=== PATIENT | female | born 1990 | race Caucasian/White ===

== ENCOUNTER 2020-06-12 11:47 | Outpatient (REF) | payer OTHER, MEDICAID, SELFPAY ==
[2020-06-12 13:45] LABS: HCG Quantitative 11449 mIU/mL
== END 2020-06-12 11:48 | disposition home or self-care (01) ==
LOC: HO.LAB 11:47
PROVIDERS: Visit Provider Advanced Practice Midwife
DX: N92.6 Irregular menstruation, unspecified (principal)
CPT/HCPCS: 81025; 84702; 99212

== ENCOUNTER 2020-06-20 09:18 | Outpatient (REF) | payer OTHER, SELFPAY ==
--- NOTE | 2020-06-20 09:22 | US_ITS ---
EXAMINATION: OBSTETRICAL ULTRASOUND, FIRST TRIMESTER HISTORY: 29-year-old with secondary amenorrhea LMP: Unknown COMPARISON: None in this TECHNIQUE: Real time transabdominal imaging with color and M-mode Doppler. FINDINGS: A single, live IUP CRL of 4.1 mm c/w 6.1wks is noted. Heart Rate: 124 beats per minute. Both maternal ovaries are seen and appear normal. GESTATIONAL AGE: 1. GA from LMP: N/A wks 2. GA from AUA: 6.1 wks ESTIMATED DATE OF DELIVERY: 1. WU from LMP: N/A 2. WU from AUA: 02/12/2021 US/US OB <= 14 weeks fetus IMPRESSION: 1. A single live IUP 2. CRL corresponds to 6.1 weeks of gestation giving the WU of 02/12/2021 3. Normal heart rate of 124 bpm Thank you for allowing me to participate in her care.
== END 2020-06-20 09:19 | disposition home or self-care (01) ==
LOC: HO.US 09:18
PROVIDERS: Visit Provider Advanced Practice Midwife
DX: O26.841 Uterine size-date discrepancy, first trimester (principal); Z3A.14 14 weeks gestation of pregnancy
CPT/HCPCS: 76801

== ENCOUNTER → 2020-07-02 14:15 | Outpatient (BNVA) | payer OTHER, SELFPAY | PROVIDERS: PCP Nurse Practitioner Family; Visit Provider Advanced Practice Midwife | DX: Z76.89 Persons encountering health services in other specified circumstances (principal) ==

== ENCOUNTER → 2020-07-17 10:17 | Outpatient (BNVA) | payer OTHER, SELFPAY | PROVIDERS: PCP Nurse Practitioner Family; Visit Provider Advanced Practice Midwife | DX: Z34.90 Encounter for supervision of normal pregnancy, unspecified, unspecified trimester (principal) | CPT/HCPCS: 99212 ==

== ENCOUNTER 2020-07-29 09:05 | Outpatient (REF) | payer MEDICAID, SELFPAY ==
[2020-07-30 09:47] LABS: BV Int Neg Control Negative (Negative); BV Int Pos Control Positive (Positive)
[2020-07-30 19:02] LABS: C. trachomatis RNA TMA NOT DETECTED (NOT DETECTED); N. gonorrhoeae RNA TMA NOT DETECTED (NOT DETECTED)
== END 2020-07-29 09:06 | disposition home or self-care (01) ==
LOC: HO.LAB 09:05
PROVIDERS: PCP Nurse Practitioner Family; Visit Provider Advanced Practice Midwife
DX: Z01.419 Encounter for gynecological examination (general) (routine) without abnormal findings (principal); O26.91 Pregnancy related conditions, unspecified, first trimester; Z3A.01 Less than 8 weeks gestation of pregnancy
CPT/HCPCS: 36415; 81003; 87480; 87491; 87510; 87591; 87660; 88142; 99212

== ENCOUNTER 2020-08-01 11:03 | Outpatient (REF) | payer MEDICAID, SELFPAY ==
--- NOTE | 2020-08-01 11:09 | US_ITS ---
EXAMINATION: OBSTETRICAL ULTRASOUND, FIRST TRIMESTER HISTORY: A 30-year-old at 12.1 weeks of gestation BMI 36.6 NT screening COMPARISON: 06/20/2020 TECHNIQUE: Real time transabdominal imaging with color and M-mode Doppler. FINDINGS: A single, live IUP CRL of 72.0 mm c/w 13.3wks is noted. Heart Rate: 156 beats per minute. Normal yolk sac seen. NT was 1.73.mm. NB Present The embryo appears sonographically wnl for this GA. Unable to visualize GESTATIONAL AGE: 1. Established GA: 12.1 wks 2. GA from AUA: 13.3 wks ESTIMATED DATE OF DELIVERY: 1. Established WU: 02/12/2021 2. WU from [facility]: 02/03/2021 US/US OB 1T nuc measure IMPRESSION: 1. A single live IUP 2. Size greater than dates, based on today's examination, would recommend adjusting her WU to 02/03/2021. Her original WU was based on 6 week ultrasound where the CRL was some difficult to obtain. 3. NT of 1.73 mm MFM Consultation: I reviewed the ultrasound findings along with significance of NT measurement. The NT of less than 3mm is generally reassuring. However, the sensitivity for T21 detection is only 60%. I reviewed the availability of serum aneuploidy screening which includes cell-free DNA and placental protein based tests. I discussed the sensitivity, false-positive rate, and other limitations associated with each test. I also reviewed the availability of invasive diagnostic tests that are associated small but definite risk of miscarriage. We also reviewed the differences between screening tests and diagnostic tests. After our discussion, she opted for the First trimester screening that is based on cell-free DNA or non-invasive testing (NIPT). There is increased risk of congenital abnormalities and morbidity in women with BMI >35. The result will be faxed to your office in approximately 7 days. A follow up at 18 weeks for survey has been scheduled. Thank you very much for this referral. Majority of this visit was spent reviewing her care and counselling her in face to face time: Time spent 30 min. (5,18,7)
== END 2020-08-01 11:04 | disposition home or self-care (01) ==
LOC: HO.US 11:03
PROVIDERS: Visit Provider Advanced Practice Midwife
DX: Z36.82 Encounter for antenatal screening for nuchal translucency (principal)
CPT/HCPCS: 76813

== ENCOUNTER → 2020-08-26 08:31 | Outpatient (BNVA) | payer MEDICAID, SELFPAY | PROVIDERS: Visit Provider Advanced Practice Midwife | DX: Z34.81 Encounter for supervision of other normal pregnancy, first trimester (principal) | CPT/HCPCS: 81003; 99212 ==

== ENCOUNTER 2020-09-05 08:25 | Outpatient (REF) | payer MEDICAID, SELFPAY ==
--- NOTE | ~2020-09-05 | US_ITS ---
EXAMINATION: US OBSTETRICAL CLINICAL INFORMATION: 30-year-old at 18.3 weeks of gestation BMI 36.6 Screening for anomaly COMPARISON: 08/01/2020 TECHNIQUE: Real-time transabdominal ultrasound was performed using C1-5 megahertz transducer. FINDINGS: A single, active, fetus is seen in breech presentation. The placenta is posterior without previa, and the amniotic fluid volume is wnl. MEASUREMENTS: 1. Biparietal Diameter: 4.2 cm; 18.6 wks 2. Occipital Frontal Diameter: 5.3 cm 3. Head Circumference: 15.4 cm; 18.3 wks 4. Abdominal Circumference: 12.9 cm; 18.4 wks 5. Femur Length: 2.8 cm; 18.5 wks 6. Humerus Length: 2.7 cm; 18.4 wks 7. Tibia Length: 2.4 cm; 18.4 wks 8. Ulna Length: 2.5 cm; 18.6 wks 9. Lateral ventricle: 0.58 cm 10. Cerebellum: 1.8 cm; 18.5 wks 11. Cisterna Magna: 0.4 cm 12. Nuchal Fold: 2.8 mm 13. Heart Rate: 152 beats per minute Rt ovary: normal Lt ovary: normal Cervical length 4.7 cm on T/A. GESTATIONAL AGE: 1. Established GA: 18.3 wks 2. GA from [facility]: 18.5 wks ESTIMATED DATE OF DELIVERY: 1. Established WU: 02/03/2021 2. WU from [facility]: 02/01/2021 ANATOMY: The visualized anatomy includes but not limited to: 1. Cranium: Normal 2. Intracranial anatomy: cavum septum pellucidi, lateral ventricles, choroid plexus, cerebellum, posterior fossa, third and fourth ventricles. 3. face: orbits, lip/palate, profile, nasal bone 4. Heart: four-chamber view of the heart, ventricular septum, foramen ovale, pulmonary vein, left and right outflow tracts, three-vessel view, 3 vessel trachea view, aortic and ductal arches, situs.. 5. Diaphragm: Normal 6. Abdominal wall: Normal 7. Cord Insertion: Normal 8. Spine: Cervical, thoracic, lumbar, sacral. 9. Stomach: Normal size and shape 10. Right Kidney: Normal 11. Left Kidney: Normal 12. 3 vessel cord: Normal 13. Upper extremity: Open hands, fifth digit. 14. Lower extremity: Tibia, fibula, bilateral feet. 15. Bladder: Normal 16. Genitalia: Male, patient aware US/US OB /maternal detail IMPRESSION: 1. Single, living, intrauterine with appropriate biometry. 2. Normal survey DISCUSSION: I reviewed today's ultrasound findings. We discussed the limitations of ultrasound in diagnosing aneuploidy and other congenital abnormalities. I reviewed the differences between screening test and diagnostic test. Amniocentesis was discussed and declined. She was informed that the baseline incidence of congenital abnormalities is approximately 3-5%. Not all these conditions are diagnosable in utero. RECOMMENDATIONS: 1. Follow-up when necessary Thank you for allowing me to participate in her care. This note was generated with a voice recognition program. Please excuse any errors which may have been overlooked during my review of this note. Sometimes these errors may affect the content or meaning of a given sentence.
[2020-09-05 09:56] LABS: MANUAL DIFF FLAG NO
[2020-09-05 10:01] LABS: Basophils Percent Auto 0.4 % (0-2); Eosinophils Absolute Auto 0.1 X10*3/uL (0.0-0.4); Eosinophils Percent Auto 0.9 % (0-4); Hematocrit 36.3 % (37-47); Hemoglobin 12.6 g/dl (12.0-16.0); Imm Gran Abs Auto 0.04 X10*3/uL (0.00-0.03); Imm Gran Pct Auto 0.6 % (0.0-0.4); Lymphocytes Percent Auto 15.5 % (20-40); Mean Corpuscular HGB Conc 34.7 g/dl (31.0-35.0); Mean Corpuscular Hemoglobin 28.6 pg (27.0-33.0); Mean Corpuscular Volume 82.3 fL (80-98); Mean Platelet Volume 10.9 fL (9.4-12.3); Monocytes Absolute Auto 0.5 X10*3/uL (0.1-1.2); Neutrophils Absolute Auto 5.1 X10*3/uL (2.0-8.3); Neutrophils Percent Auto 75.6 % (45-73); Platelet Count 273 X10*3/uL (160-400); Red Blood Count 4.41 X10*6/uL (4.20-5.50); Red Cell Distribution Width 12.5 % (11.0-16.0); White Blood Count 6.7 X10*3/uL (4.8-10.8)
[2020-09-05 10:28] LABS: Glucose 1 Hour PP 50gm Dose 93 mg/dL (60-140)
[2020-09-05 10:51] LABS: Syphilis Screen Nonreactive (Nonreactive)
[2020-09-05 10:58] LABS: HBsAGNum1 0.14 S/CO (0.00-0.99); Hepatitis B Surface Antigen Negative (Negative); ~HepC Num1 0.09 S/CO (0.00-0.79); ~Hepatitis C Antibody Nonreactive (Nonreactive)
[2020-09-05 11:03] LABS: HIV AB/AG Nonreactive (Nonreactive); HIV Num 1 0.05 S/CO (0.00-0.99)
[2020-09-05 11:38] LABS: Amphetamine Screen Urine Not Detected (Not Detect); Barbiturates, Urine Not Detected (Not Detect); Benzodiazepines Screen Urine Not Detected (Not Detect); Cannabinoid Screen Urine Not Detected (Not Detect); Cocaine Screen Urine Not Detected (Not Detect); Opiate Screen Urine Not Detected (Not Detect); Phencyclidine Screen Urine Not Detected (Not Detect)
[2020-09-06 08:36] LABS: Rubella IgG Antibody 1.93 Index
[2020-09-06 09:47] LABS: C. trachomatis RNA TMA NOT DETECTED (NOT DETECTED); N. gonorrhoeae RNA TMA NOT DETECTED (NOT DETECTED)
== END 2020-09-05 08:26 | disposition home or self-care (01) ==
LOC: HO.LAB 08:25
PROVIDERS: Visit Provider Advanced Practice Midwife
DX: Z34.90 Encounter for supervision of normal pregnancy, unspecified, unspecified trimester (principal); Z36.3 Encounter for antenatal screening for malformations
CPT/HCPCS: 76811; 80307; 85025; 86762; 86780; 86787; 86803; 86850; 86900; 86901; 87086; 87340; 87389; 87491; 87591

== ENCOUNTER → 2020-09-23 08:27 | Outpatient (BNVA) | payer MEDICAID, SELFPAY | PROVIDERS: Visit Provider Advanced Practice Midwife | DX: Z34.92 Encounter for supervision of normal pregnancy, unspecified, second trimester (principal); Z3A.21 21 weeks gestation of pregnancy; R51.9 Headache, unspecified | CPT/HCPCS: 81003 ==

== ENCOUNTER 2020-10-22 08:18 | Outpatient (REF) | payer MEDICAID, SELFPAY | END 2020-10-22 08:19 | disposition home or self-care (01) | LOC: HO.LAB 08:18 | PROVIDERS: Visit Provider Obstetrics & Gynecology | DX: Z34.92 Encounter for supervision of normal pregnancy, unspecified, second trimester (principal); Z3A.25 25 weeks gestation of pregnancy | CPT/HCPCS: 99212 ==

== ENCOUNTER 2020-11-01 10:29 | Outpatient (REF) | payer MEDICAID, SELFPAY ==
[2020-11-01 11:55] LABS: MANUAL DIFF FLAG NO
[2020-11-01 11:58] LABS: Basophils Percent Auto 0.4 % (0-2); Eosinophils Absolute Auto 0.1 X10*3/uL (0.0-0.4); Eosinophils Percent Auto 0.8 % (0-4); Hematocrit 34.5 % (37-47); Hemoglobin 11.9 g/dl (12.0-16.0); Imm Gran Abs Auto 0.06 X10*3/uL (0.00-0.03); Imm Gran Pct Auto 0.8 % (0.0-0.4); Lymphocytes Absolute Auto 1.2 X10*3/uL (1.2-4.9); Lymphocytes Percent Auto 16.4 % (20-40); Mean Corpuscular HGB Conc 34.5 g/dl (31.0-35.0); Mean Corpuscular Hemoglobin 29.2 pg (27.0-33.0); Mean Corpuscular Volume 84.6 fL (80-98); Mean Platelet Volume 10.3 fL (9.4-12.3); Monocytes Absolute Auto 0.5 X10*3/uL (0.1-1.2); Monocytes Percent Auto 6.6 % (2-11); Neutrophils Absolute Auto 5.6 X10*3/uL (2.0-8.3); Platelet Count 269 X10*3/uL (160-400); Red Blood Count 4.08 X10*6/uL (4.20-5.50); White Blood Count 7.4 X10*3/uL (4.8-10.8)
[2020-11-01 12:14] LABS: Glucose 1 Hour PP 50gm Dose 133 mg/dL (60-140)
[2020-11-03 03:43] LABS: Syphilis Screen Nonreactive (Nonreactive)
== END 2020-11-01 10:30 | disposition home or self-care (01) ==
LOC: HO.LAB 10:29
PROVIDERS: Visit Provider Obstetrics & Gynecology
DX: Z34.90 Encounter for supervision of normal pregnancy, unspecified, unspecified trimester (principal)
CPT/HCPCS: 36415; 85025; 86780; 86850; 86900; 86901

== ENCOUNTER → 2020-11-03 13:37 | Outpatient (BNVA) | payer MEDICAID, SELFPAY | PROVIDERS: Visit Provider Obstetrics & Gynecology ==

== ENCOUNTER 2021-08-11 09:31 | Outpatient (REF) | payer MEDICAID, SELFPAY ==
--- NOTE | ~2021-08-11 | US_ITS ---
EXAMINATION: US ABDOMEN LIMITED CLINICAL INFORMATION: Mass palpated at mid axillary line. Pain, lump palpated left flank area. COMPARISON: None TECHNIQUE: Real-time imaging of the right upper quadrant abdominal viscera. FINDINGS: Imaging through the palpated mass mid axillary area and left flank area. There is no visible mass or mass effect. No fluid collection. Imaging of the contralateral right flank was performed as well with no abnormality seen. US/US abdomen limited IMPRESSION: Unremarkable limited ultrasound of the left axillary and mid flank region.
== END 2021-08-11 09:32 | disposition home or self-care (01) ==
LOC: HO.HMGCX 09:31
PROVIDERS: Visit Provider Nurse Practitioner
DX: M79.89 Other specified soft tissue disorders (principal)
CPT/HCPCS: 76705

== ENCOUNTER 2021-09-22 09:03 | Outpatient (REF) | payer MEDICAID, SELFPAY ==
--- NOTE | ~2021-09-22 | XR_ITS ---
EXAMINATION: XR KNEE, RIGHT CLINICAL INFORMATION: Pain COMPARISON: None TECHNIQUE: Four views of the right knee. FINDINGS: Bones and soft tissues are normal. No fracture or joint effusion. Alignment is anatomic. Joint spaces are well maintained. No abnormal soft tissue calcification. XR/XR knee RT 4V IMPRESSION: Normal right knee.
--- NOTE | ~2021-09-22 | US_ITS ---
EXAMINATION: US RETROPERITONEAL LIMITED (RENAL ONLY) CLINICAL INFORMATION: Abdominal pain. COMPARISON: Ultrasound abdomen limited 08/11/2021. TECHNIQUE: Real-time imaging of the kidneys. FINDINGS: RIGHT KIDNEY: 10.2 x 4.2 x 6.0 cm (SAG x AP x TRV). The kidney is normal in size, contour, and echogenicity. Renal cortical thickness is normal. There is a 9 x 3 mm echogenic density with twinkle artifact some acoustic shadowing questionable for a stone. No focal parenchymal lesions. No hydronephrosis. LEFT KIDNEY: 13.3 x 4.0 x 6.6 cm (SAG x AP x TRV). The kidney is normal in size, contour, and echogenicity. Renal cortical thickness is normal. No calculi or focal parenchymal lesions. No hydronephrosis. US/US renal BI IMPRESSION: Question right renal stone.
--- NOTE | ~2021-09-22 | XR_ITS ---
EXAMINATION: XR SHOULDER, RIGHT CLINICAL INFORMATION: Pain COMPARISON: None TECHNIQUE: AP external rotation, Grashey, scapular Y, and axillary views of the right shoulder. FINDINGS: The bones and soft tissues are normal. No fracture. Glenohumeral and acromioclavicular alignment is anatomic with normal joint space. No abnormal soft tissue calcifications. XR/XR shoulder RT min 2V IMPRESSION: Normal right shoulder.
== END 2021-09-22 09:04 | disposition home or self-care (01) ==
LOC: HO.US 09:03
PROVIDERS: PCP Nurse Practitioner Family; Visit Provider Nurse Practitioner Family
DX: M25.561 Pain in right knee (principal); M25.511 Pain in right shoulder
CPT/HCPCS: 73030; 73564; 76775

== ENCOUNTER → 2021-11-17 11:35 | Outpatient (BNVA) | payer MEDICAID, SELFPAY | PROVIDERS: PCP Nurse Practitioner Family | DX: N20.0 Calculus of kidney (principal) | CPT/HCPCS: 99202 ==

== ENCOUNTER 2021-11-25 10:29 | Outpatient (REF) | payer MEDICAID, SELFPAY ==
--- NOTE | ~2021-11-25 | XR_ITS ---
EXAMINATION: XR CHEST CLINICAL INFORMATION: COMPARISON: None TECHNIQUE: 2 views of the chest were obtained. FINDINGS: No significant abnormality is noted involving the heart, lungs, mediastinum, bony thorax or soft tissues. XR/XR chest 2V IMPRESSION: Unremarkable examination.
[2021-11-25 11:51] LABS: MANUAL DIFF FLAG NO
[2021-11-25 12:14] LABS: Basophils Absolute Auto 0.1 X10*3/uL (0.0-0.2); Basophils Percent Auto 0.8 % (0-2); Eosinophils Absolute Auto 0.1 X10*3/uL (0.0-0.4); Eosinophils Percent Auto 1.7 % (0-4); Hematocrit 39.6 % (37.0-47.0); Hemoglobin 12.9 g/dl (12.0-16.0); Imm Gran Abs Auto 0.01 X10*3/uL (0.00-0.03); Imm Gran Pct Auto 0.2 % (0.0-0.4); Lymphocytes Absolute Auto 1.9 X10*3/uL (1.2-4.9); Lymphocytes Percent Auto 32.1 % (20-40); Mean Corpuscular HGB Conc 32.6 g/dl (31.0-35.0); Mean Corpuscular Hemoglobin 26.7 pg (27.0-33.0); Mean Platelet Volume 10.9 fL (9.4-12.3); Monocytes Absolute Auto 0.5 X10*3/uL (0.1-1.2); Monocytes Percent Auto 7.5 % (2-11); Neutrophils Absolute Auto 3.5 x10*3/uL (2.0-8.3); Neutrophils Percent Auto 57.7 % (45-73); Platelet Count 382 X10*3/uL (160-400); Red Blood Count 4.83 X10*6/uL (4.20-5.50); Red Cell Distribution Width 12.5 % (11.0-16.0)
[2021-11-25 13:01] LABS: Erythrocyte Sedimentation Rate 6 MM/HR (0-20)
[2021-11-27 12:52] LABS: Antibody to SS-A Antigen <1.0 NEG AI (<1.0 NEG); Antibody to SS-B Antigen <1.0 NEG AI (<1.0 NEG)
[2021-11-27 13:12] LABS: Lyme Abs Screen <0.90 index
[2021-12-01 23:52] LABS: Anti Nuclear Antibody Screen NEGATIVE (NEGATIVE)
== END 2021-11-25 10:30 | disposition home or self-care (01) ==
LOC: HO.LAB 10:29
PROVIDERS: PCP Nurse Practitioner Family; Visit Provider Hospitalist
DX: R07.81 Pleurodynia (principal); J45.909 Unspecified asthma, uncomplicated; G47.33 Obstructive sleep apnea (adult) (pediatric)
CPT/HCPCS: 36415; 71046; 82785; 85025; 85652; 86003; 86038; 86039; 86235; 86617; 86618; 99202

== ENCOUNTER → 2021-12-15 08:39 | Outpatient (REF) | payer MEDICAID, SELFPAY | LOC: HO.SL 08:39 | PROVIDERS: PCP Nurse Practitioner Family; Visit Provider Hospitalist | DX: G47.33 Obstructive sleep apnea (adult) (pediatric) (principal) | CPT/HCPCS: 95806 ==

== ENCOUNTER → 2022-01-29 08:45 | Outpatient (BNVA) | payer MEDICAID, SELFPAY | PROVIDERS: PCP Nurse Practitioner Family; Visit Provider Hospitalist | DX: J45.909 Unspecified asthma, uncomplicated (principal); G47.33 Obstructive sleep apnea (adult) (pediatric); J40 Bronchitis, not specified as acute or chronic | CPT/HCPCS: 99212 ==

== ENCOUNTER 2022-10-06 09:26 | Outpatient (REF) | payer MEDICAID, SELFPAY ==
--- NOTE | ~2022-10-06 | US_ITS ---
EXAMINATION: US RETROPERITONEAL LIMITED (RENAL ONLY) CLINICAL INFORMATION: Calculus of kidney. COMPARISON: Renal ultrasound 09/22/2021. Ultrasound abdomen limited 08/11/2021. TECHNIQUE: Real-time imaging of the kidneys. FINDINGS: RIGHT KIDNEY: 10.0 x 4.5 x 5.6 cm (SAG x AP x TRV). The kidney is normal in size, contour, and echogenicity. Renal cortical thickness is normal. No focal parenchymal lesions or hydronephrosis. There is an echogenic stone in midpole measuring 0.6 x 0.8 x 0.6 cm. LEFT KIDNEY: 11.8 x 3.6 x 5.0 cm (SAG x AP x TRV). The kidney is normal in size, contour, and echogenicity. Renal cortical thickness is normal. No calculi or focal parenchymal lesions. No hydronephrosis. US/US renal BI IMPRESSION: Nonobstructive echogenic renal calculi midpole right kidney.
== END 2022-10-06 09:27 | disposition home or self-care (01) ==
LOC: HO.US 09:26
PROVIDERS: PCP Registered Nurse
DX: N20.0 Calculus of kidney (principal); Z87.442 Personal history of urinary calculi
CPT/HCPCS: 76775

== ENCOUNTER 2022-10-14 08:54 | Outpatient (REF) | payer MEDICAID, SELFPAY ==
--- NOTE | 2022-10-14 08:58 | EMG_ITS ---
Bilateral median and ulnar motor and sensory studies were performed. Bilateral radial sensory studies were performed and paraspinal muscles were tested with a needle. IMPRESSION: 1. Mild bilateral ulnar neuropathy across cubital tunnel. 2. Mild left median neuropathy across carpal tunnel. MD YULIYA Espino/JESSE / [id number]
== END 2022-10-14 08:55 | disposition home or self-care (01) ==
LOC: HO.NEURO 08:54
PROVIDERS: PCP Registered Nurse; Visit Provider Registered Nurse
DX: R20.0 Anesthesia of skin (principal); R20.2 Paresthesia of skin
CPT/HCPCS: 95886; 95911

== ENCOUNTER 2022-10-15 16:31 | Outpatient (REF) | payer MEDICAID, SELFPAY ==
--- NOTE | ~2022-10-15 | XR_ITS ---
Examination: Cervical, dorsal and lumbosacral spine. CLINICAL INDICATION: Numbness and tingling in both legs COMPARISON: None. TECHNIQUE: 5 views cervical spine. 3 views dorsal spine. And 3 views lumbosacral spine. FINDINGS: Cervical spine: There is reversal of cervical lordosis. The vertebral heights, alignment and disc heights are normal. On oblique views the neural foramina patent bilaterally. No visible acute fracture, dislocation or subluxation seen. No aggressive lytic or sclerotic process seen. Dorsal spine: There is normal thoracic kyphosis. The vertebral heights, alignment and disc heights are normal. No visible acute fracture, dislocation or subluxation seen. No lytic or sclerotic process. The paravertebral soft tissues are normal Lumbar spine: There is normal lumbar lordosis. The vertebral heights, alignment and disc heights are normal. SI joints are symmetric and normal. No visible acute fracture, dislocation or lytic process seen. The paravertebral soft tissues are normal. XR/XR lumbar spine 2-3V IMPRESSION: 1. Reversal of cervical lordosis likely spasm. No visible acute fracture or dislocation seen. 2. Unremarkable dorsal spine exam. 3. Unremarkable lumbar spine exam.
--- NOTE | ~2022-10-15 | XR_ITS ---
Examination: Cervical, dorsal and lumbosacral spine. CLINICAL INDICATION: Numbness and tingling in both legs COMPARISON: None. TECHNIQUE: 5 views cervical spine. 3 views dorsal spine. And 3 views lumbosacral spine. FINDINGS: Cervical spine: There is reversal of cervical lordosis. The vertebral heights, alignment and disc heights are normal. On oblique views the neural foramina patent bilaterally. No visible acute fracture, dislocation or subluxation seen. No aggressive lytic or sclerotic process seen. Dorsal spine: There is normal thoracic kyphosis. The vertebral heights, alignment and disc heights are normal. No visible acute fracture, dislocation or subluxation seen. No lytic or sclerotic process. The paravertebral soft tissues are normal Lumbar spine: There is normal lumbar lordosis. The vertebral heights, alignment and disc heights are normal. SI joints are symmetric and normal. No visible acute fracture, dislocation or lytic process seen. The paravertebral soft tissues are normal. XR/XR thoracic spine 2V IMPRESSION: 1. Reversal of cervical lordosis likely spasm. No visible acute fracture or dislocation seen. 2. Unremarkable dorsal spine exam. 3. Unremarkable lumbar spine exam.
--- NOTE | ~2022-10-15 | XR_ITS ---
Examination: Cervical, dorsal and lumbosacral spine. CLINICAL INDICATION: Numbness and tingling in both legs COMPARISON: None. TECHNIQUE: 5 views cervical spine. 3 views dorsal spine. And 3 views lumbosacral spine. FINDINGS: Cervical spine: There is reversal of cervical lordosis. The vertebral heights, alignment and disc heights are normal. On oblique views the neural foramina patent bilaterally. No visible acute fracture, dislocation or subluxation seen. No aggressive lytic or sclerotic process seen. Dorsal spine: There is normal thoracic kyphosis. The vertebral heights, alignment and disc heights are normal. No visible acute fracture, dislocation or subluxation seen. No lytic or sclerotic process. The paravertebral soft tissues are normal Lumbar spine: There is normal lumbar lordosis. The vertebral heights, alignment and disc heights are normal. SI joints are symmetric and normal. No visible acute fracture, dislocation or lytic process seen. The paravertebral soft tissues are normal. XR/XR cervical spine 5V IMPRESSION: 1. Reversal of cervical lordosis likely spasm. No visible acute fracture or dislocation seen. 2. Unremarkable dorsal spine exam. 3. Unremarkable lumbar spine exam.
== END 2022-10-15 16:32 | disposition home or self-care (01) ==
LOC: HO.XRAY 16:31
PROVIDERS: Absent Provider Registered Nurse; PCP Registered Nurse; Visit Provider Registered Nurse
DX: R20.2 Paresthesia of skin (principal); R20.0 Anesthesia of skin; M79.18 Myalgia, other site
CPT/HCPCS: 72050; 72070; 72100

== ENCOUNTER → 2022-11-19 09:23 | Outpatient (BNVA) | payer MEDICAID, SELFPAY | PROVIDERS: PCP Registered Nurse; Visit Provider Nurse Practitioner Family | DX: N20.0 Calculus of kidney (principal) | CPT/HCPCS: 99212 ==

== ENCOUNTER 2023-04-12 17:37 | Outpatient (REF) | payer MEDICAID, SELFPAY | END 2023-04-12 17:38 | disposition home or self-care (01) | LOC: HO.HHCLNP 17:37 | PROVIDERS: Visit Provider Internal Medicine | DX: Z11.52 Encounter for screening for COVID-19 (principal); J06.9 Acute upper respiratory infection, unspecified; Z20.822 Contact with and (suspected) exposure to COVID-19 | CPT/HCPCS: 0241U ==

== ENCOUNTER 2023-05-12 14:13 | Outpatient (AMB) | payer MEDICAID, SELFPAY ==
[2023-05-12 14:26] VITALS: PULSE 75; O2SAT 99; BMI 35.0
--- NOTE | 2023-05-12 14:26 | MHC.OFFVIS ---
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 She has been describing worsening back discomfort. Appears to be pleuritic in nature. Bilateral. It is also reproducible. She has been describing also dryness of her mucous membranes that is being uncomfortable. She also describes sensations of paresthesias of bilateral lower extremities. [id number] severity. It is intermittent. The patient also has been complaining of significant daytime drowsiness. She does have significant snoring per her . The patient also has significant daytime drowsiness with an [place] score of 12/24. At this point with multiple constitutional symptoms is hard to know if she has multiple issues or if she has 1 universal diagnosis. Will have the patient undergo a chest x-ray in addition to blood work. based on the fact that her respiratory status appears to be fairly well controlled with the Flovent and short-acting beta agonist will continue that for now. The patient will need a home sleep study. 01/29/2022 the patient is here for a pulmonary follow-up visit. She feels like she is getting worse. She has developed a worsening cough productive in nature. Moderate severity. The Flovent is only partially helping. She has been using her daughter's rescue inhaler because she does not have 1 available. She complains of the coughing worse at nighttime. She also has chest tightness. We did look at her blood work including a CBC with normal eosinophils and allergy panel which was all negative with a normal IgE level. Patient also had a sleep study that was normal. Imaging studies also without any acute disease. At this point will maximize her respiratory therapy by placing her on Symbicort with spacer. The patient also will be treated for tracheobronchitis. 05/12/2023 the patient is here for pulmonary follow-up visit. Last month she had a very hard time with her asthma. She has significant chest tightness and wheezing. She went to an urgent care but she was not giving any medication. The patient has been on Symbicort although she is running out. She does have a nebulizer. At this point will go ahead and provide her with a nebulizer. Currently doing better so therefore will continue with Symbicort. The patient also has been struggling with allergies therefore will go ahead and start her on Singulair. No recent imaging studies to review. Will follow-up in 6-8 months. 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 Current occupational exposures/hazards: No Gender identity: Female Review of Systems Const Reports difficulty sleeping, Reports headache(s) and Reports snoring Eyes Denies change in vision and Reports dry eyes ENT Reports dry mouth and Reports headache(s) Card Denies palpitations Resp Reports cough, Reports snoring and Reports wheezing GI Reports no additional complaints Musc Reports back pain, Reports myalgias and Reports arthralgias Skin/Breast Denies rash Neuro Reports headache(s), Reports radicular pain and Reports paresthesias Endo Denies palpitations Aller/Immun Reports wheezing Physical Exam Vital Signs: Last Vital Signs Pulse 75 05/12/23 14:26 Pulse Ox 99 05/12/23 14:26 Oxygen Delivery Method Room Air 05/12/23 14:26 BMI result Body Mass Index 35.0 Const General: alert Neck Neck: Yes normal visual inspection, Yes full ROM and Yes no lymphadenopathy Chest Chest palpation & inspection: normal inspection of the chest Resp Auscultation: clear to auscultation bilaterally, no rhonchi and no wheezes Cardio Rate: regular rate Rhythm: regular rhythm Heart sounds: S1 normal heart sound present and S2 normal heart sound present GI Palpation (GI): Soft to palpation and nontender Auscultation: normal bowel sounds Skin General skin exam: rashes and/or lesions noted Assessment & Plan Assessment & Plan (1) Asthma: Code(s): J45.909 - Unspecified asthma, uncomplicated Qualifiers: Asthma complication type: uncomplicated Asthma persistence: persistent Asthma severity: moderate Qualified Code(s): J45.40 - Moderate persistent asthma, uncomplicated (2) ANN (obstructive sleep apnea): Comment: no ANN on home PSG. Consider in lab PSG if continues symptomatic Code(s): G47.33 - Obstructive sleep apnea (adult) (pediatric) Plan continue Symbicort with spacer Tessalon pearls as needed PATRICIA as needed start singulair F/U 6-8 months Medications: New albuterol sulfate 2.5 mg (3 mL) inhalation Q6H 30 days PRN 180 mL 11RF shortness of breath or wheezing montelukast (Singulair) 10 mg PO BEDTIME 30 days 30 tabs 11RF J45.909 - Unspecified asthma, uncomplicated prednisone PO daily; Take 2 tabs daily x 5 days, then 1 tablet daily x 5 days 15 tabs 0RF 10 days Refilled budesonide-formoterol 160-4.5 mcg/actuation (Symbicort) 2 puffs inhalation BID 30 days 10.2 grams 11RF J44.9 - Chronic obstructive pulmonary disease, unspecified albuterol sulfate 90 mcg/actuation 2 inhalations inhalation Q6H 30 days PRN 18 grams 12RF shortness of breath or wheezing J44.9 - Chronic obstructive pulmonary disease, unspecified Coding Level of Care Code Est Pt Level 4 (36300) Diagnoses Moderate persistent asthma without complication J45.40 Asthma complication type: uncomplicated Asthma persistence: persistent Asthma severity: moderate ANN (obstructive sleep apnea) G47.33 Time Spent (min) 16
== END 2023-05-12 14:46 | disposition home or self-care (01) ==
PROVIDERS: PCP Registered Nurse; Visit Provider Hospitalist
DX: J45.40 Moderate persistent asthma, uncomplicated (principal); G47.33 Obstructive sleep apnea (adult) (pediatric)
CPT/HCPCS: 99214

== ENCOUNTER → 2023-05-12 14:13 | Outpatient (BNVA) | payer MEDICAID, SELFPAY | PROVIDERS: PCP Registered Nurse; Visit Provider Hospitalist | DX: J45.40 Moderate persistent asthma, uncomplicated (principal); G47.33 Obstructive sleep apnea (adult) (pediatric) | CPT/HCPCS: 99212 ==

== ENCOUNTER 2023-08-12 09:00 | Outpatient (RCR) | payer MEDICAID, SELFPAY | END 2023-09-20 15:15 | disposition home or self-care (01) | LOC: HO.PT 09:00 | PROVIDERS: PCP Registered Nurse; Visit Provider Registered Nurse | DX: M76.31 Iliotibial band syndrome, right leg (principal); M76.32 Iliotibial band syndrome, left leg | CPT/HCPCS: 97162; 97530 ==

== ENCOUNTER 2023-11-23 14:57 | Outpatient (REF) | payer MEDICAID, SELFPAY ==
[2023-11-23 18:53] LABS: Alanine Aminotransferase 21 U/L (0-31); Albumin Level 4.3 g/dL (3.5-5.0); Alkaline Phosphatase 79 U/L (39-117); Anion Gap 15 (12-20); Aspartate Amino Transferase 13 U/L (5-31); Bilirubin Total 0.7 mg/dL (0.0-1.0); Blood Urea Nitrogen 12 mg/dL (9-16); Carbon Dioxide 21 mmol/L (22-29); Chloride 107 mmol/L (96-108); Estimated Glomerular Filt Rate > 60; Glucose Random 80 mg/dL (60-115); Sodium 139 mmol/L (135-145); Total Protein 7.7 g/dL (6.5-8.0)
[2023-11-23 19:08] LABS: Rheumatoid Factor < 13.0 IU/mL (<15.0)
[2023-11-23 19:12] LABS: Erythrocyte Sedimentation Rate 7 MM/HR (0-20)
[2023-11-28 14:38] LABS: Anti Nuclear Antibody Screen NEGATIVE (NEGATIVE)
== END 2023-11-23 14:58 | disposition home or self-care (01) ==
LOC: HO.HHCL 14:57
PROVIDERS: Visit Provider Registered Nurse
DX: M25.50 Pain in unspecified joint (principal)
CPT/HCPCS: 36415; 80053; 85652; 86038; 86140; 86431

== ENCOUNTER 2023-12-16 09:28 | Outpatient (AMB) | payer MEDICAID, SELFPAY ==
[2023-12-16 09:36] VITALS: PULSE 81; O2SAT 97; BMI 36.5
--- NOTE | 2023-12-16 09:36 | MHC.OFFVIS ---
Vital Signs 12/16/23 09:36 Height 5 ft 8 in Weight 240 lb BMI 36.5 Pulse 81 Pulse Source Pulse Oximeter Pulse Oximetry (%) 97 Oxygen Delivery Method Room Air Intake Visit Reasons: asthma Telephone Maintenance Mechanic Required: No Allergies No Known Allergies Allergy (Verified 12/16/23 09:37) HPI Comments Details: The patient is a 32-year-old woman with a known history of asthma who apparently has been complaining of multiple symptoms. She has been describing worsening back discomfort. Appears to be pleuritic in nature. Bilateral. It is also reproducible. She has been describing also dryness of her mucous membranes that is being uncomfortable. She also describes sensations of paresthesias of bilateral lower extremities. [id number] severity. It is intermittent. The patient also has been complaining of significant daytime drowsiness. She does have significant snoring per her . The patient also has significant daytime drowsiness with an Powersite score of 12/24. At this point with multiple constitutional symptoms is hard to know if she has multiple issues or if she has 1 universal diagnosis. Will have the patient undergo a chest x-ray in addition to blood work. based on the fact that her respiratory status appears to be fairly well controlled with the Flovent and short-acting beta agonist will continue that for now. The patient will need a home sleep study. 01/29/2022 the patient is here for a pulmonary follow-up visit. She feels like she is getting worse. She has developed a worsening cough productive in nature. Moderate severity. The Flovent is only partially helping. She has been using her daughter's rescue inhaler because she does not have 1 available. She complains of the coughing worse at nighttime. She also has chest tightness. We did look at her blood work including a CBC with normal eosinophils and allergy panel which was all negative with a normal IgE level. Patient also had a sleep study that was normal. Imaging studies also without any acute disease. At this point will maximize her respiratory therapy by placing her on Symbicort with spacer. The patient also will be treated for tracheobronchitis. 05/12/2023 the patient is here for pulmonary follow-up visit. Last month she had a very hard time with her asthma. She has significant chest tightness and wheezing. She went to an urgent care but she was not giving any medication. The patient has been on Symbicort although she is running out. She does have a nebulizer. At this point will go ahead and provide her with a nebulizer. Currently doing better so therefore will continue with Symbicort. The patient also has been struggling with allergies therefore will go ahead and start her on Singulair. No recent imaging studies to review. Will follow-up in 6-8 months. 12/16/2023 the patient is here for a pulmonary follow-up visit. Overall the patient has been doing much better. Has not had any recent flare-ups from her asthma. Has not required any prednisone. She has been able to cut down the Symbicort which is reassuring. She still uses a rescue inhaler times a week. No recent x-rays to review. She did respond well to the singular. She still having issues with daytime drowsiness. Powersite score still elevated 10/24. But it seems to be more related to insomnia. She is going to work on herbal remedies. if she does improve her hours sleeping continues have daytime drowsiness she can always call and we can request a repeat sleep study. She does want to take any medications. She has had some posttraumatic medications in the past. At this time she is doing well will continue with the current respiratory regimen and will follow-up in a year's time. 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 Current occupational exposures/hazards: No Gender identity: Female Review of Systems Const Reports difficulty sleeping, Reports headache(s) and Reports snoring Eyes Denies change in vision and Reports dry eyes ENT Reports dry mouth and Reports headache(s) Card Denies palpitations Resp Reports cough, Reports snoring and Reports wheezing GI Reports no additional complaints Musc Reports back pain, Reports myalgias and Reports arthralgias Skin/Breast Denies rash Neuro Reports headache(s), Reports radicular pain and Reports paresthesias Endo Denies palpitations Aller/Immun Reports wheezing Physical Exam Vital Signs: Last Vital Signs Pulse 81 12/16/23 09:36 Pulse Ox 97 12/16/23 09:36 Oxygen Delivery Method Room Air 12/16/23 09:36 BMI result Body Mass Index 36.5 Const General: alert Neck Neck: Yes normal visual inspection, Yes full ROM and Yes no lymphadenopathy Chest Chest palpation & inspection: normal inspection of the chest Resp Auscultation: clear to auscultation bilaterally, no rhonchi and no wheezes Cardio Rate: regular rate Rhythm: regular rhythm Heart sounds: S1 normal heart sound present and S2 normal heart sound present GI Palpation (GI): Soft to palpation and nontender Auscultation: normal bowel sounds Skin General skin exam: rashes and/or lesions noted Assessment & Plan Assessment & Plan (1) Asthma: Code(s): J45.909 - Unspecified asthma, uncomplicated Category: Medical Qualifiers: Asthma complication type: uncomplicated Asthma persistence: persistent Asthma severity: moderate Qualified Code(s): J45.40 - Moderate persistent asthma, uncomplicated (2) ANN (obstructive sleep apnea): Comment: no ANN on home PSG. Consider in lab PSG if continues symptomatic Code(s): G47.33 - Obstructive sleep apnea (adult) (pediatric) Category: Medical Plan continue Symbicort with spacer Tessalon pearls as needed PATRICIA as needed continue singulair F/U 12 months Coding Level of Care Code Est Pt Level 4 (64799) Diagnoses Moderate persistent asthma without complication J45.40 Asthma complication type: uncomplicated Asthma persistence: persistent Asthma severity: moderate ANN (obstructive sleep apnea) G47.33 Time Spent (min) 16
== END 2023-12-16 09:49 | disposition home or self-care (01) ==
PROVIDERS: PCP Registered Nurse; Visit Provider Hospitalist
DX: J45.40 Moderate persistent asthma, uncomplicated (principal); G47.33 Obstructive sleep apnea (adult) (pediatric)
CPT/HCPCS: 99214

== ENCOUNTER → 2023-12-16 09:28 | Outpatient (BNVA) | payer MEDICAID, SELFPAY | PROVIDERS: PCP Registered Nurse; Visit Provider Hospitalist | DX: J45.40 Moderate persistent asthma, uncomplicated (principal); G47.33 Obstructive sleep apnea (adult) (pediatric); Z79.899 Other long term (current) drug therapy | CPT/HCPCS: 99212 ==

== ENCOUNTER → 2024-05-28 15:27 | Outpatient (BNVA) | payer MEDICAID, SELFPAY | PROVIDERS: PCP Registered Nurse; Visit Provider Physician Assistant Surgical | DX: I83.11 Varicose veins of right lower extremity with inflammation (principal); I83.12 Varicose veins of left lower extremity with inflammation | CPT/HCPCS: 99212 ==

== ENCOUNTER → 2024-05-28 15:27 | Outpatient (AMB) | payer MEDICAID, SELFPAY ==
--- NOTE | 2024-05-28 15:29 | MHC.OFFVIS ---
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 States it started years ago, states it comes and goes, depending on her activity. 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: Details: Dale, a pleasant 33-year-old female patient, is presenting today for concerns of tingling and painful bilateral lower extremities, left more than right. She states it has been going on for more than a year. Complaints include pain , slight swelling of lower extremities, and heaviness of the lower extremities. It has been affecting their daily activities including walking and standing. It is noted more so in left more than right leg. She is a nonsmoker and not a diabetic. Patient denies any previous venous surgery or injections. Patient denies any history of DVT/ PE. Patient denies any history of phlebitis. Trial of compression includes - elevation with a little relief They now present for vascular evaluation regarding their varicose veins. 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 occupational exposures/hazards: No Gender identity: Female Review of Systems Const Reports as per HPI and Denies weakness ENT Reports Normal hearing present and Denies dizziness Card Reports as per HPI, Denies chest pain, Denies chest pain at rest, Denies chest pain with activity, Denies dyspnea and Denies dyspnea on exertion Resp Reports as per HPI, Denies cough, Denies dyspnea and Denies dyspnea on exertion GI Reports as per HPI, Denies abdominal pain, Denies nausea and Denies vomiting Musc Denies numbness Skin/Breast Reports as per HPI, Denies erythema and Denies wounds Neuro Reports Normal hearing present, Denies dizziness, Denies numbness, Denies Sensory deficit (Neuro) and Denies weakness Psych Reports no additional complaints Endo Reports no additional complaints Physical Exam Const General: healthy appearing and no acute distress Orientation/consciousness: patient oriented x3 HEENT Head: Yes normal to inspection Ears: hearing grossly normal bilaterally Mouth: Normal oral and palatal mucosa present Resp Effort & Inspection: normal respiratory effort and able to speak in complete sentences Auscultation: clear to auscultation bilaterally Cardio Jugular venous distension: no JVD Rate: regular rate Rhythm: regular rhythm Heart sounds: S1 normal heart sound present and S2 normal heart sound present Bruits: no abdominal aortic bruits, no carotid bruits, no femoral bruits and no renal bruits Peripheral pulses: Peripheral pulses 2+ throughout GI Inspection: Yes normal to inspection Palpation (GI): No Abdominal aortic bruit present Skin General skin exam: no rashes or lesions noted Wounds: no wounds Hair: normal Neuro General: patient oriented x3 Cranial nerves: Yes Normal hearing present Cognition (Neuro): normal cognition Gait exam (Neuro): Normal gait present Motor exam (neuro): 5/5 motor strength present throughout Sensory Exam: No Sensory deficit (Neuro) Extrem Other: Bilateral lower extremities: Trace peripheral edema noted bilaterally. No discoloration noted. Palpable DP pulses. CEAP: C - 3 E - primary A - superficial P - reflux General: Yes normal to inspection, Yes full ROM, Yes capillary refill normal and Yes normal gait Assessment & Plan Assessment & Plan (1) Varicose veins of both lower extremities with inflammation: Code(s): I83.11 - Varicose veins of right lower extremity with inflammation; I83.12 - Varicose veins of left lower extremity with inflammation Category: Medical Plan: Dale rendon is presenting today as a referral from her PCP for ongoing tingling and pain in her bilateral lower extremities, left more than right. She states she has been having some slight swelling intermittently. In short, the patient has evidence of venous insufficiency. I have discussed the pathophysiology with the patient. In addition I have provided informational material regarding venous disease to the patient. We have discussed conservative measures including compression, elevation, and exercise. I have also provided a handout regarding appropriate use of compression stockings and where to purchase good compression stockings as well. I have taken the liberty of ordering venous insufficiency testing with the patient. They will follow up with me after testing. The patient had an opportunity to ask questions regarding the treatment plan. All questions were answered. No major barriers to understanding were identified. The patient expressed understanding and agreement with the above treatment plan. The patient is aware they should contact our office by phone for worsening of the current condition or the appearance of new symptoms. Thank you for allowing me to participate in the vascular care of this patient. If you have any questions or concerns regarding the treatment for the above condition please do not hesitate to contact me. The office telephone contact is [phone]. This note is constructed using voice recognition software. While every effort has been made to ensure accuracy, room service food service attendant errors may have been included. Thank you for allowing me to participate in the care of your patient. Yours sincerely, PRESTON Weldon Orders: Orders US venous duplex LE BI 1 Week I83.11 - Varicose veins of right lower extremity with inflammation, I83.12 - Varicose veins of left lower extremity with inflammation Coding Level of Care Code New Pt Level 4 (78293) Diagnoses Varicose veins of both lower extremities with inflammation I83.11; I83.12
== END ==
PROVIDERS: PCP Registered Nurse; Visit Provider Physician Assistant Surgical
DX: I83.11 Varicose veins of right lower extremity with inflammation (principal); I83.12 Varicose veins of left lower extremity with inflammation
CPT/HCPCS: 99204

== ENCOUNTER 2024-06-20 10:32 | Outpatient (REF) | payer MEDICAID, SELFPAY | END 2024-06-20 10:33 | disposition home or self-care (01) | LOC: HO.US 10:32 | PROVIDERS: Visit Provider Physician Assistant Surgical | DX: I83.11 Varicose veins of right lower extremity with inflammation (principal); I83.12 Varicose veins of left lower extremity with inflammation | CPT/HCPCS: 93970 ==

== ENCOUNTER 2024-06-28 11:15 | Outpatient (AMB) | payer MEDICAID, SELFPAY ==
--- NOTE | 2024-06-28 11:20 | MHC.OFFVIS ---
Intake Visit Reasons: follow up s/p US 06/20/24 Intake Note: Patient presents for follow up US performed on 06/20/24. No complaints. Accompanied by: Self / Same As Patient Allergies No Known Allergies Allergy (Verified 06/28/24 11:21) HPI HPI follow up s/p US 06/20/24: Details: Dale is presenting today for a follow up to US performed on 06/20/24. She continues to endorse numbness and tingling in her hands/arms as well as feet/toes. She denies any new concerns/complaints today. 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: No Gender identity: Female Review of Systems Const Reports as per HPI and Denies weakness ENT Reports Normal hearing present and Denies dizziness Card Reports as per HPI, Denies chest pain, Denies chest pain at rest, Denies chest pain with activity, Denies dyspnea and Denies dyspnea on exertion Resp Reports as per HPI, Denies cough, Denies dyspnea and Denies dyspnea on exertion GI Reports as per HPI, Denies abdominal pain, Denies nausea and Denies vomiting Musc Denies numbness Skin/Breast Reports as per HPI, Denies erythema and Denies wounds Neuro Reports Normal hearing present, Denies dizziness, Denies numbness, Denies Sensory deficit (Neuro) and Denies weakness Psych Reports no additional complaints Endo Reports no additional complaints Physical Exam Const General: healthy appearing and no acute distress Orientation/consciousness: patient oriented x3 HEENT Head: Yes normal to inspection Ears: hearing grossly normal bilaterally Mouth: Normal oral and palatal mucosa present Resp Effort & Inspection: normal respiratory effort and able to speak in complete sentences Auscultation: clear to auscultation bilaterally Cardio Jugular venous distension: no JVD Rate: regular rate Rhythm: regular rhythm Heart sounds: S1 normal heart sound present and S2 normal heart sound present Bruits: no abdominal aortic bruits, no carotid bruits, no femoral bruits and no renal bruits Peripheral pulses: Peripheral pulses 2+ throughout GI Inspection: Yes normal to inspection Palpation (GI): No Abdominal aortic bruit present Skin General skin exam: no rashes or lesions noted Wounds: no wounds Hair: normal Neuro General: patient oriented x3 Cranial nerves: Yes Normal hearing present Cognition (Neuro): normal cognition Gait exam (Neuro): Normal gait present Motor exam (neuro): 5/5 motor strength present throughout Sensory Exam: No Sensory deficit (Neuro) Extrem Other: Bilateral lower extremities: Trace peripheral edema noted bilaterally. No discoloration noted. Palpable DP pulses. General: Yes normal to inspection, Yes full ROM, Yes capillary refill normal and Yes normal gait Results Reviewed Results Reviewed: Brief summary of venous insufficiency testing is as follows: right great saphenous vein: negative right small saphenous vein: negative right accessory vein: none present left great saphenous vein: negative left small saphenous vein: negative left accessory vein: none present Please note there is no evidence of any venous aneurysms or significant tortuosity Assessment & Plan Assessment & Plan (1) Varicose veins of both lower extremities with inflammation: Code(s): I83.11 - Varicose veins of right lower extremity with inflammation; I83.12 - Varicose veins of left lower extremity with inflammation Category: Medical Plan: Dale is presenting today for a follow up to US performed on 06/20. There was no venous insufficiency noted on US. She does continue with the same symptoms of numbness/tingling of all her extremities. We discussed to follow up with her PCP for further evaluation and treatment. We discussed compression stockings, elevation, and the importance of physical activity. We discussed that if symptoms changed/worsened she could reach back out to us as well. If there are any questions or concerns, please do not hesitate to reach out to us. Coding Level of Care Code Est Pt Level 4 (91379) Diagnoses Varicose veins of both lower extremities with inflammation I83.11; I83.12 Comment review of US
== END 2024-06-28 11:24 | disposition home or self-care (01) ==
PROVIDERS: PCP Registered Nurse; Visit Provider Physician Assistant Surgical
DX: I83.11 Varicose veins of right lower extremity with inflammation (principal); I83.12 Varicose veins of left lower extremity with inflammation
CPT/HCPCS: 99214

== ENCOUNTER → 2024-06-28 11:15 | Outpatient (BNVA) | payer MEDICAID, SELFPAY | PROVIDERS: PCP Registered Nurse; Visit Provider Physician Assistant Surgical | DX: I83.11 Varicose veins of right lower extremity with inflammation (principal); I83.12 Varicose veins of left lower extremity with inflammation | CPT/HCPCS: 99212 ==

== ENCOUNTER 2024-08-13 15:44 | Outpatient (AMB) | payer MEDICAID, SELFPAY ==
[2024-08-13 15:48] VITALS: BP 102/60; PULSE 77; O2SAT 100; BMI 32.2
--- NOTE | 2024-08-13 15:48 | MHC.OFFVIS ---
Vital Signs 08/13/24 15:48 Height 5 ft 8 in Weight 211 lb 10.3 oz BMI 32.2 BP 102/60 Blood Pressure Location Rt brachial Position Sitting Pulse 77 Pulse Source Pulse Oximeter Pulse Oximetry (%) 100 Oxygen Delivery Method Room Air Intake Visit Reasons: asthma Allergies No Known Allergies Allergy (Verified 08/13/24 15:50) HPI Comments Details: The patient is a 34-year-old woman with a known history of asthma who apparently has been complaining of multiple symptoms. She has been describing worsening back discomfort. Appears to be pleuritic in nature. Bilateral. It is also reproducible. She has been describing also dryness of her mucous membranes that is being uncomfortable. She also describes sensations of paresthesias of bilateral lower extremities. qhti-[id number] severity. It is intermittent. The patient also has been complaining of significant daytime drowsiness. She does have significant snoring per her . The patient also has significant daytime drowsiness with an Cincinnati score of 12/24. At this point with multiple constitutional symptoms is hard to know if she has multiple issues or if she has 1 universal diagnosis. Will have the patient undergo a chest x-ray in addition to blood work. based on the fact that her respiratory status appears to be fairly well controlled with the Flovent and short-acting beta agonist will continue that for now. The patient will need a home sleep study. 01/29/2022 the patient is here for a pulmonary follow-up visit. She feels like she is getting worse. She has developed a worsening cough productive in nature. Moderate severity. The Flovent is only partially helping. She has been using her daughter's rescue inhaler because she does not have 1 available. She complains of the coughing worse at nighttime. She also has chest tightness. We did look at her blood work including a CBC with normal eosinophils and allergy panel which was all negative with a normal IgE level. Patient also had a sleep study that was normal. Imaging studies also without any acute disease. At this point will maximize her respiratory therapy by placing her on Symbicort with spacer. The patient also will be treated for tracheobronchitis. 05/12/2023 the patient is here for pulmonary follow-up visit. Last month she had a very hard time with her asthma. She has significant chest tightness and wheezing. She went to an urgent care but she was not giving any medication. The patient has been on Symbicort although she is running out. She does have a nebulizer. At this point will go ahead and provide her with a nebulizer. Currently doing better so therefore will continue with Symbicort. The patient also has been struggling with allergies therefore will go ahead and start her on Singulair. No recent imaging studies to review. Will follow-up in 6-8 months. 12/16/2023 the patient is here for a pulmonary follow-up visit. Overall the patient has been doing much better. Has not had any recent flare-ups from her asthma. Has not required any prednisone. She has been able to cut down the Symbicort which is reassuring. She still uses a rescue inhaler times a week. No recent x-rays to review. She did respond well to the singular. She still having issues with daytime drowsiness. Cincinnati score still elevated 10/24. But it seems to be more related to insomnia. She is going to work on herbal remedies. if she does improve her hours sleeping continues have daytime drowsiness she can always call and we can request a repeat sleep study. She does want to take any medications. She has had some posttraumatic medications in the past. At this time she is doing well will continue with the current respiratory regimen and will follow-up in a year's time. 08/13/2024 the patient is here for pulmonary follow-up visit. Overall she is doing well on the current respiratory medications including Symbicort her rescue inhaler and Singulair. The therapy has been affecting beneficial. She has not had any recent flare-ups. Denies any chest pains or shortness of breath. Respiratory blas she is otherwise without any other complaints no imaging studies to review. Will continue with current respiratory therapy and will follow-up in a year's time. The patient develops any worsening symptoms prior to that she will call for an earlier assessment. 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 Current occupational exposures/hazards: No Gender identity: Female Review of Systems Const Reports difficulty sleeping, Reports headache(s) and Reports snoring Eyes Denies change in vision and Reports dry eyes ENT Reports dry mouth and Reports headache(s) Card Denies palpitations Resp Reports cough, Reports snoring and Reports wheezing GI Reports no additional complaints Musc Reports back pain, Reports myalgias and Reports arthralgias Skin/Breast Denies rash Neuro Reports headache(s), Reports radicular pain and Reports paresthesias Endo Denies palpitations Aller/Immun Reports wheezing Physical Exam Vital Signs: Last Vital Signs Pulse 77 08/13/24 15:48 BP 102/60 08/13/24 15:48 Pulse Ox 100 08/13/24 15:48 Oxygen Delivery Method Room Air 08/13/24 15:48 BMI result Body Mass Index 32.2 Const General: alert Neck Neck: Yes normal visual inspection, Yes full ROM and Yes no lymphadenopathy Chest Chest palpation & inspection: normal inspection of the chest Resp Auscultation: clear to auscultation bilaterally, no rhonchi and no wheezes Cardio Rate: regular rate Rhythm: regular rhythm Heart sounds: S1 normal heart sound present and S2 normal heart sound present GI Palpation (GI): Soft to palpation and nontender Auscultation: normal bowel sounds Skin General skin exam: rashes and/or lesions noted Assessment & Plan Assessment & Plan (1) Asthma: Code(s): J45.909 - Unspecified asthma, uncomplicated Category: Medical Qualifiers: Asthma complication type: uncomplicated Asthma persistence: persistent Asthma severity: moderate Qualified Code(s): J45.40 - Moderate persistent asthma, uncomplicated (2) ANN (obstructive sleep apnea): Comment: no ANN on home PSG. Consider in lab PSG if continues symptomatic Code(s): G47.33 - Obstructive sleep apnea (adult) (pediatric) Category: Medical Plan continue Symbicort with spacer Tessalon pearls as needed PATRICIA as needed continue singulair F/U 12 months Medications: Changed From budesonide-formoterol 160-4.5 mcg/actuation (Symbicort) 2 puffs inhalation BID 30 days 10.2 grams 11RF J44.9 - Chronic obstructive pulmonary disease, unspecified To budesonide-formoterol 160-4.5 mcg/actuation (Symbicort) 2 puffs inhalation BID 3 ea 3RF 90 days J44.9 - Chronic obstructive pulmonary disease, unspecified From montelukast (Singulair) 10 mg PO BEDTIME 30 days 30 tabs 11RF J45.909 - Unspecified asthma, uncomplicated To montelukast (Singulair) 10 mg PO BEDTIME 90 tabs 3RF 90 days J45.909 - Unspecified asthma, uncomplicated Refilled albuterol sulfate 90 mcg/actuation 2 inhalations inhalation Q6H PRN 18 grams 12RF shortness of breath or wheezing 30 days J44.9 - Chronic obstructive pulmonary disease, unspecified Coding Level of Care Code Est Pt Level 4 (24057) Diagnoses Moderate persistent asthma without complication J45.40 Asthma complication type: uncomplicated Asthma persistence: persistent Asthma severity: moderate ANN (obstructive sleep apnea) G47.33 Time Spent (min) 16
== END 2024-08-13 16:09 | disposition home or self-care (01) ==
PROVIDERS: PCP Registered Nurse; Visit Provider Hospitalist
DX: J45.40 Moderate persistent asthma, uncomplicated (principal); G47.33 Obstructive sleep apnea (adult) (pediatric)
CPT/HCPCS: 99214

== ENCOUNTER → 2024-08-13 15:44 | Outpatient (BNVA) | payer MEDICAID, SELFPAY | PROVIDERS: PCP Registered Nurse; Visit Provider Hospitalist | DX: J45.40 Moderate persistent asthma, uncomplicated (principal); G47.33 Obstructive sleep apnea (adult) (pediatric) | CPT/HCPCS: 99212 ==

== ENCOUNTER 2025-01-03 09:00 | Outpatient (REF) | payer MEDICAID, SELFPAY ==
--- OUTSIDE RECORDS SUMMARY | 2025-01-03 09:13 | XMS_ITS | Encounter Summary ---
Author Organization [employer] Address [address] [place] [address] Care Team Providers Care Front Worker Name Role Phone Angelita Vidales MILLICENT Primary Care Provider [phone] Reason for Visit * Reason Comments Med Refill Encounter Details Date Type Department Care Team ([facility] Contact Info) Description 04/01/2024 Refill [facility] [address], [place] [phone] Desirae Kahn MD [address] [place] [address] Chest pain, unspecified type; Costochondritis, acute Social History Tobacco Use Types Packs/Day Years Used Date Smoking Tobacco: Never Passive Smoke Exposure: Never Smokeless Tobacco: Never Alcohol Use Standard Drinks/Week Comments Never 0 (1 standard drink = 0.6 oz pur e alcohol) Depression Answer Date Recorded Patient Health Questionnaire-9 Score 18 11/23/2023 Patient Health Questionnaire-9 Score 18 11/23/2023 Last PHQ-9: Questionnaire Data Not on file 0 11/23/2023 Housing Stability Answer Date Recorded What is your housing situation today? I have braden li 09/22/[address] you li ve. Do you have problems with any of the following? None of the above 09/22/2023 Food Insecurity Answer Date Recorded Within the past 12 months, y ou worried that your food would run out before you got money to buy more: Never True 09/22/2023 Within the past 12 months,th e food you bought just didn't last and you didn't have enough money to get more: Never True Transportation Answer Date Recorded In the past 12 months, has l ack of transportation kept you from medical appts, meetings, work or from getting things needed for daily living? No 09/22/2023 Utilities Answer Date Recorded In the past 12 months, has t he electric, gas, oil or water company threatened to shut off services in your home? No 09/22/2023 Depression Answer Date Recorded Patient Health Questionnaire-2 Score 6 11/23/2023 Comments No Sex and Gender Information Value Date Recorded Sex Assigned at Female 05/03/2022 10:36 AM EDT Legal Sex Female 10:36 AM EDT Gender Identity Female 05/03/2022 10:36 AM EDT Sexual Orientation Straight 05/03/2022 10 :36 AM EDT documented as of this encounter Miscellaneous Notes * Telephone Encounter - MILLICENT Hawley - 04/02/2024 8:21 PM EDT Pt requested refill of nortriptyline, however I called pharmacy and they said last filled in 2022. Please call to ask more information about medication refill request - thanks! documented in this encounter Plan of Treatment Upcoming Encounters Date Type Department Care Team (Late st Contact Info) Description 03/08/2025 10:00 AM EDT Office Visit [facility] [address] [place] [address] Chris Galdamez MD [address] [place] [address] documented as of this encounter Visit Diagnoses Diagnosis Chest pain, unspecified type Costochondritis, acute documented in this encounter Additional Health Concerns Assessment Noted Time PHQ-9 Depression Total Score: 18 024 1:59 PM EDT documented as of this encounter Care Teams Front Worker Relationship Specialty Start Date End Date Angelita Vidales FNP [address] [place] [address] PCP - General Family Medicine 03/01/22 documented as of this encounter
--- OUTSIDE RECORDS SUMMARY | 2025-01-03 09:13 | XMS_ITS | Data Portability ---
Author Organization [facility] Address [address] [place] [address] Care Team Providers Care Search Lead Name Role Phone [facility] Primary Care Provider Assessment Encounter Date Assessment Date Assessment LastModified by Organization Details LastModified Time 10/29/2024 10/29/2024 Dx:right knee patellofemoral arthritis Interval History:34-year-o ld woman, was seen 3 years ago for similar complaints treated with cortisone injection, notes 1 week history of recurrent right knee pain and swelling, atraumatic onset. MRI from 3 years ago shows patellofemoral arthritis as the major finding. SocHx: nonsmoker, non drinker ROS: negative Past Medical/Surgical History/Meds/Marvin rgies reviewed and charted. Physical Exam: afebrile, vital signs stable, in no apparent distress, oriented to person/place/time . Gait:symmetric skin: intact, no erythema. Heart RRR. Lungs clear Abdomen soft, nontender. rightKNEE: no redness, warmth, deformity Effusion estimated 5cc. Atrophy none Range of Motion 0-130 degrees. Strength 5/5 all muscle groups. Kamron negative. Pivot Shift negative Varus/Valgus/Post erior laxity testing: negative. Joint Line Tenderness: negative. Patellofemoral crepitus absent. Contralateral knee: no deformity, no effusion, full motion, no laxity, no joint line tenderness, no patellar crepitus. New Studies: multiple views, no advanced arthritic wear Impression:right knee patellofemoral arthritis Plan: 1.the knee was aspirated for 10 cc clear fluid, injected with corticosteroid 2. Follow-up 4 weeks to check progress [facility] speech recognition fiction and nonfiction writer prose software was used to create portions of this document. An attempt at proofreading has been made to minimize errors. Please call for corrections. [email or web address] Not available 10/29/2024 11:33:37 Plan of Treatment Reminders Order Date Submit Date Provider Last Modified By Organization Details Last Modified Time Details Appointments None record ed. Lab None record ed. Referral None record ed. Procedures None record ed. Surgeries None record ed. Imaging XR, knee, 3 view - 3v lt knee room 212 025 10/30/19 [email or web address] [facility] Office, [address], [place], [address], 14:59:05 Medication Orders None record ed. Patient TargetsNo targets recorded. Patient InstructionsNo instructions recorded. Reason for Referral None Reported. Results Created Date Observation Date Name Description Value Unit Range Abnormal Flag Note LastModifiedBy Organization Detail LastModifiedTime 10/30/1910/29/2024 XR, knee, 3 view [email or web address] ?Encry pted=s hAaTro YD8dLq bEUv6g %2BXZw aYqtaq 0bqfl% 2Fg9IQ a4ajBk vP9nXo QUaueC m3YtLR FvZlgJ JJ8mAn HZtai3 4h7919 AC0Kla n%2BBV qKhKiQ trMwF INTERFACE [facility] [address], [place], [address], 10/29/2024 11:04:10 10/30/19 25 10/29/2024 XR, knee, 3 view [email or web address] ?Encry pted=s hAaTro YD8dLq bEUv6g %2BXZw aYqtaq 0bqfl% 2Fg9IQ a4ajBk vP9nXo QUaueC m3YtLR FvZlgJ JJ8mAn HZtai3 8y0097 AC0Kla n%2BBV qKhKiQ trMwF INTERFACE [facility] [address], [place], [address], 10/29/2024 11:04:11 Result Notes Documentation Provider Name and Address Organization Details Recorded Time Xr, Knee, 3 View : [email or web address] Encrypted=gsRnTfoSP0pIomU Uv6g%1RBLkxNiafs6qqyq%2Fg 2XIc4yjZhaG1jKuRFbzsWq0Ew KPYeJjnDOP8xFdLTfon87l271 8MG7Sxyx%2BBVqKhKiQtrMwF Not Available [facility] 10/29/2024 11:0 4:10 Xr, Knee, 3 View : [email or web address] Encrypted=rrUlGkeYV3oBmbR Uv6g%9YPWkhFuhqn9wvep%2Fg 4VYn4puNytR8jMzARgirSj6Xj DDDtGlmRWU4xBjJLkun27o639 0SJ4Syxk%2BBVqKhKiQtrMwF Not Available [facility] 10/29/2024 11:0 4:11 Procedures Surgical History Date Name Laterality Status Provider Name and Address Organization Details Recorded Time 10/29/2024 Sports Knee 4&1 completed Misha Willams MD [address] [facility] [address], [place], [address], [facility] 10/29/2024 11:33:47 Imaging Results None recorded. Procedure Notes None recorded. Medical Equipment None Reported. Allergies No known drug allergies Medications Name Sig Start Date Stop Date Status Note LastModified by Organization Details LastModified Time albuterol sulfate 2.5 mg/3 mL (0.083 %) solution for nebulization USE 1 VIAL VIA NEBULIZER EVERY 6 HOURS NEEDED FOR SHORTNESS OF BEATH OR WHEEZING FOR 30 DAYS active Not Available Not Available Not Available cetirizine 10 mg tablet TAKE 1 TABLET BY MOUTH EVERY DAY active Not Available Not Available No t Available acetaminophe n 500 mg tablet TAKE 1 TABLET BY MOUTH EVERY 6 TO 8 HOURS NEEDED FOR PAIN OR FEVER active Not Available Not Available No t Available famotidine 20 mg tablet TAKE 1 TABLET BY MOUTH TWICE DAILY IN THE MORNING AND AT BEDTIME NEEDED FOR HEARTBURN OR INDIGESTION active Not Available Not Available Not Available magnesium oxide 400 mg (241.3 mg magnesium) tablet TAKE ONE TABLET AT BEDTIME FOR SLEEP active Not Available Not Available No t Available econazole nitrate 1 % topical cream APPLY TOPICALLY TO THE AFFECTED AREA(S) UNDER THE breast TWICE DAILY active Not Available Not Available Not Available clotrimazole -betamethaso ne 1 %-0.05 % topical cream APPLY TOPICALLY TO THE AFFECTED AREA TWICE DAILY active Not Available Not Available No t Available hydrocortiso ne 2.5 % topical cream APPLY TOPICALLY TO THE AFFECTED AREA(S) A PEA SIZED AMOUNT TWICE DAILY active Not Available Not Available Not Available montelukast 10 mg tablet TAKE 1 TABLET BY MOUTH AT BEDTIME active Not Available Not Available No t Available fluticasone propionate 50 mcg/actuatio n nasal spray,suspen colton SHAKE LIQUID AND USE 1 SPRAY IN EACH NOSTRIL DAILY active Not Available Not Available No t Available Ventolin HFA 90 mcg/actuatio n aerosol inhaler INHALE 2 FOR PAIN UFFS BY MOUTH EVERY 6 HOURS NEEDED FOR SHORTNESS OF BREATH OR WHEEZING active Not Available Not Available Not Available Symbicort 160 mcg-4.5 mcg/actuatio n HFA aerosol inhaler INHALE 2 PUFFS BY MOUTH TWICE DAILY active Not Available Not Available No t Available diclofenac 1 % topical gel APPLY ONE INCH RIBBON TO THE AFFECTED AREA EVERY MORNING AND EVERY NIGHT AT BEDTIME active Not Available Not Available N ot Available Vitamin D3 50 mcg (2,000 unit) tablet TAKE 1 TABLET BY MOUTH EVERY MORNING active Not Available Not Available No t Available Wegovy 1.7 mg/0.75 mL subcutaneous pen injector INJECT 1.7MG WEEKLY active Not Available Not Available No t Available Wegovy 1 mg/0.5 mL subcutaneous pen injector Inject 1 mg subcutaneou sly weekly for 4 weeks active Not Available Not Available Not Available Wegovy 0.25 mg/0.5 mL subcutaneous pen injector INJECT 0.25 MG'S SUBCUTANEOU SLY ONCE PER WEEK active Not Available Not Available No t Available Wegovy 0.5 mg/0.5 mL subcutaneous pen injector INJECT 0.5mg's SUBCUTANEOU SLY ONCE WEEKLY WEEKS FIVE TO EIGHT active Not Available Not Available No t Available Zepbound 2.5 mg/0.5 mL subcutaneous pen injector INJECT 2.5 MG SUBCUTANEOU SLY ONCE A WEEK active Not Available Not Available No t Available Vitals Date Recorded Body height Body mass index (BMI) Body weight Provider Name and Address Organization Details Last Updated DateTime 10/29/2024 172.72 cm 33.5 kg/m2 25937.32 g SONIA BARRETT [place] - [facility] 10/29/2024 10:50:22 Social History None recorded. Functional Status None recorded. Mental Status None recorded. Family History Nothing Reported. Medical History Condition Response Coronary Artery Disease N Anxiety/Depression N Emphysema N COPD N Pacemaker N Vascular Disease N Heart Trouble N Gastrointestinal Disease N Autoimmune disease N Inflammatory Joint disease N Orthotics N Arthritis Y Blood Clot N Acid Reflux (GERD) N Cancer N Stroke N Circulation Problems N Rheumatoid Arthritis N Arrhythmia N Headaches Y Fibromyalgia N Allergies/Hayfever N Breathing or lung disorders N Nerve Disorders N Thyroid Problems N Kidney/Bladder Problems N Anemia N Heart Attack (PR) N Cholesterol N Diabetes N Bleeding Disorder N Seizures/Epilepsy N AIDS/HIV N Congestive Heart Failure (CHF) N Asthma N Peripheral Vascular Disease N Sleep Apnea N Hepatitis N Heart Disease N Pulmonary Embolism N Hypertension N Osteoporosis N Gynecological HistoryNo gynecological history recorded. Obstetrics History GPAL:G 0 P 0 0 0 0 Past Encounters Encounter ID Performer Location Encounter Start Date Encounter Closed Date Diagnosis/Indication Diagnosis SNOMED-CT Code Diagnosis ICD10 Code Diagnosis Note [id number] MD ALDO [facility] [address] [facility] [place] [address] 10/29/2024 10:37:42 11/02/2024 14:59:05 Pain of right knee region [id number] 36045 M25.561 Health Concerns Section Related Observation LastModified by Organization Detai ls LastModified Time None Recorded Concern Status LastModified by Organization Details LastModified Time None Recorded Advance Directives Directive None Recorded Payers Insurance Date Sequence Insurance Name Policy Number Policy Manzo Covered Member ID Manoz Member ID Guarantor Name 11/29/2024 1 [place] Dale Mejía [id number] Dale Mejía OBGyn Episode No OBEpisode recorded.
--- OUTSIDE RECORDS SUMMARY | 2025-01-03 09:13 | XMS_ITS | Clinical Summary ---
Author Organization [facility] Address [address] [place] [address] Care Team Providers Care Record Label Intern Name Role Phone Unavailable Primary Care Provider Unavailabl e Social History Tobacco Use Types Packs/Day Years Used Date Smoking Tobacco: Never Assessed Comments Unknown Sex and Gender Information Value Date Recorded Sex Assigned at Not on file Legal Sex Female 4:58 PM EST Gender Identity Not on file Sexual Orientation Not on file Plan of Treatment Health Maintenance Due Date Last Done Comments DTaP,Tdap,and Td Vaccines (1 - Tdap) 2009 Hepatitis B Vaccines (1 of 3 - 19+ 3-dose series) 2009 Cervical Cancer Screening: P ap Smear 2011 COVID-19 Vaccine ( - 2023-2 5 season) 2024 Influenza Vaccine (#1) 2025 HIB Vaccines Aged Out No longer eligi ble based on patient's age to complete this topic HPV Vaccines Aged Out No longer eligi ble based on patient's age to complete this topic Hepatitis A Vaccines Aged Out No long er eligible based on patient's age to complete this topic IPV Vaccines Aged Out No longer eligi ble based on patient's age to complete this topic MMR Vaccines Aged Out No longer eligi ble based on patient's age to complete this topic Meningococcal ACWY Vaccine Aged Out N o longer eligible based on patient's age to complete this topic Meningococcal B Vaccine Aged Out No l onger eligible based on patient's age to complete this topic Pneumococcal Vaccine: Pediat rics (0 to 5 Years) and At-Risk Patients (6 to 64 Years) Aged Out No longer eligible b ased on patient's age to complete this topic RSV Immunization Patients Un babatunde 20 months Aged Out No longer eligible b ased on patient's age to complete this topic Varicella Vaccines Aged Out No longer eligible based on patient's age to complete this topic
[2025-01-03 11:08] LABS: MANUAL DIFF FLAG NO
[2025-01-03 11:26] LABS: Hematocrit 39.1 % (37.0-47.0); Hemoglobin 13.0 g/dl (12.0-16.0); Imm Gran Abs Auto 0.01 X10*3/uL (0.00-0.03); Imm Gran Pct Auto 0.2 % (0.0-0.4); Lymphocytes Absolute Auto 1.4 X10*3/uL (1.2-4.9); Mean Corpuscular HGB Conc 33.2 g/dl (31.0-35.0); Mean Corpuscular Hemoglobin 26.6 pg (27.0-33.0); Mean Corpuscular Volume 80.1 fL (80.0-98.0); NRBC Abs Auto 0.000 X10*3/uL (0.0-0.012); NRBC Pct Auto 0.0 /100WBC (0.0-0.2); Platelet Count 332 X10*3/uL (160-400); Red Blood Count 4.88 X10*6/uL (4.20-5.50); White Blood Count 4.8 X10*3/uL (4.8-10.8)
[2025-01-03 11:38] LABS: Hemoglobin A1C 110.6834 umol/L; Total Hemoglobin (HGBA1C) 3436.0588 umol/L
[2025-01-03 11:42] LABS: Alanine Aminotransferase 22 U/L (0-31); Albumin Level 4.4 g/dL (3.5-5.0); Alkaline Phosphatase 77 U/L (39-117); Anion Gap 11 (12-20); Aspartate Amino Transferase 16 U/L (5-31); Blood Urea Nitrogen 12 mg/dL (9-16); Calcium 8.7 mg/dL (8.4-10.2); Carbon Dioxide 24 mmol/L (22-29); Chloride 106 mmol/L (96-108); Cholesterol 190 mg/dL (<200); Estimated Glomerular Filt Rate > 60; HDL Cholesterol 58 mg/dL (>40); Potassium 4.2 mmol/L (3.3-5.1); Sodium 137 mmol/L (135-145); Total Protein 7.2 g/dL (6.5-8.0); Triglycerides 99 mg/dL (<150)
[2025-01-03 11:44] LABS: HIV Num 1 0.06 S/CO (0.00-0.99)
[2025-01-03 22:05] LABS: CT PCR Urine NOT DETECTED (Not Detect.); NG PCR Urine NOT DETECTED (Not Detect.)
[2025-01-07 17:53] LABS: HCV Log PCR <1.18 NOT DETECTED Log IU/mL (NOT DETECTED); HepC Viral Load <15 NOT DETECTED IU/mL (NOT DETECTED)
== END 2025-01-03 09:01 | disposition home or self-care (01) ==
LOC: HO.HHCL 09:00
PROVIDERS: PCP Registered Nurse; Visit Provider Registered Nurse
DX: Z00.00 Encounter for general adult medical examination without abnormal findings (principal); Z11.3 Encounter for screening for infections with a predominantly sexual mode of transmission; Z11.4 Encounter for screening for human immunodeficiency virus [HIV]
CPT/HCPCS: 36415; 80053; 80061; 83036; 84443; 85025; 86592; 87389; 87491; 87522; 87591

== ENCOUNTER 2025-02-20 12:33 | Outpatient (REF) | payer MEDICAID, SELFPAY ==
--- NOTE | ~2025-02-20 | US_ITS ---
EXAMINATION: US RETROPERITONEAL LIMITED (RENAL ONLY) CLINICAL INFORMATION: Kidney pain . COMPARISON: 10/06/2022. TECHNIQUE: Real-time imaging of the kidneys. FINDINGS: RIGHT KIDNEY: 12.1 x 3.5 x 5.1 cm (SAG x AP x TRV). The kidney is normal in size, contour, and echogenicity. Renal cortical thickness is normal. Mid pole calculus measuring 3 mm. No suspicious lesion. No hydronephrosis. LEFT KIDNEY: 12.4 x 4.8 x 3.7 cm (SAG x AP x TRV). The kidney is normal in size, contour, and echogenicity. Renal cortical thickness is normal. No calculi or focal parenchymal lesions. No hydronephrosis. US/US renal BI IMPRESSION: 1. Nonobstructing right renal calculus. Otherwise normal exam. Electronically signed by: Sriram Hills MD 02/20/2025 01:20 PM EDT
--- OUTSIDE RECORDS SUMMARY | 2025-02-20 13:25 | XMS_ITS | Encounter Summary ---
Author Organization [employer] Address [address] [place] [address] Care Team Providers Care Textile Dyer Name Role Phone Angelita Vidales MILLICENT Primary Care Provider [phone] Reason for Visit * Reason Comments Med Refill Encounter Details Date Type Department Care Team ([facility] Contact Info) Description 04/01/2024 Refill [facility] [address], [place] [phone] Desirae Kahn MD [address] [place] [address] Chest pain, unspecified type; Costochondritis, acute Social [...] Description 03/08/2025 10:00 AM EDT Office Visit [facility] [address] [place] [address] Chris Galdamez MD [address] [place] [address] documented as of this encounter Visit Diagnoses Diagnosis Chest pain, unspecified type Costochondritis, acute documented in this encounter Additional Health Concerns Assessment Noted Time PHQ-9 Depression Total Score: 18 024 1:59 PM EDT documented as of this encounter Care Teams Textile Dyer Relationship Specialty Start Date End Date Angelita Vidales FNP [address] [place] [address] PCP - General Family Medicine 03/01/22 documented as of this encounter
--- OUTSIDE RECORDS SUMMARY | 2025-02-20 13:25 | XMS_ITS | Clinical Summary ---
Author Organization [facility] ity Address [address] [place] [address] Care Team Providers Care Manager Of Organizational Development Name Role Phone Unavailable Primary Care Provider [...] Vaccine ( - 2023-2 5 season) 2024 Depression Screening 07/04/2024 Influenza Vaccine (#1) 2025 HIB Vaccines Aged [...] 5 Years) and At-Risk Patients (6 to 49 Years) Aged Out No longer eligible b ased on patient's age to complete this topic RSV Immunization Patients Un babatunde 20 months Aged Out No longer eligible b ased on patient's age to complete this topic Varicella Vaccines Aged Out No longer eligible based on patient's age to complete this topic
== END 2025-02-20 12:34 | disposition home or self-care (01) ==
LOC: HO.US 12:33
PROVIDERS: PCP Registered Nurse; Visit Provider Registered Nurse
DX: N23 Unspecified renal colic (principal)
CPT/HCPCS: 76775

== ENCOUNTER → 2025-02-20 12:41 | Outpatient (BNV) | payer MEDICAID, SELFPAY | PROVIDERS: PCP Registered Nurse; Visit Provider Radiology Diagnostic Radiology | DX: N20.0 Calculus of kidney (principal) | CPT/HCPCS: 76775 ==

== ENCOUNTER 2025-04-09 09:44 | Outpatient (AMB) | payer MEDICAID, SELFPAY ==
--- NOTE | 2025-04-09 09:49 | A.OFFVIS_ITS ---
Intake Visit Reasons: kidney stones Intake Note: Patient is present for KIDNEY STONES Urology Medication:VITAMIN B6 Antibiotic Allergy:NONE Blood Thinner:NONE Deck Supervisor Required: No Allergies No Known Allergies Allergy (Verified 04/09/25 10:15) Medication List - Last Reconciled 04/09/25 by AKSHAT Lebron albuterol sulfate 2.5 mg (3 mL) inhalation Q6H PRN 30 days albuterol sulfate 90 mcg/actuation 2 inhalations inhalation Q6H PRN 30 days budesonide-formoterol 160-4.5 mcg/actuation (Symbicort) 2 puffs inhalation BID 90 days fluticasone propionate 110 mcg/actuation (Flovent HFA) 1 puff PO BID inhalational spacing device (ProChamber) USE DIRECTED montelukast (Singulair) 10 mg PO BEDTIME 90 days nebulizers As directed semaglutide (weight loss) (Wegovy) 1.7 mg subcut QWEEK HPI Comments Details: Dale is a pleasant 34-year-old female patient of Dr. Vidales. She presents to the office today for follow-up of her nephrolithiasis. In discussion with the patient today she reports to be doing and feeling well. She reports having recently had a renal ultrasound and recommendations were made for follow- up with Urology. We did discussed importance of following up as planned. Recent renal imaging results were reviewed with the patient today 02/25 bilateral kidneys with no lesions or hydronephrosis. Mid pole right renal calculus measuring 3 mm. When compared to previous imaging appears stable. She reports she attempts to drink plenty of water daily. We did discussed at length potential causes of nephrolithiasis as well as further treatment options and risks and benefits of these treatment options. In office urinalysis results reviewed with the patient today. She otherwise denies any urological issues or concerns at this time. When asked she denies urinary urgency, urinary frequency, incontinence, nocturia, hematuria, dysuria, foul smelling urine, changes to urinary stream, flank pain, fever, and or chills. She is happy with her current voiding parameters. All questions were answered. Will continue with surveillance monitoring. She otherwise offers no other issues or concerns at this time. 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 Current occupational exposures/hazards: No Gender identity: Female Review of Systems Const Reports as per HPI Eyes Reports no additional complaints ENT Reports no additional complaints Card Reports no additional complaints Resp Reports no additional complaints GI Reports no additional complaints Reports as per HPI Musc Reports as per HPI Neuro Reports no additional complaints Psych Reports no additional complaints Endo Reports no additional complaints Thiago/Lymph Reports no additional complaints Aller/Immun Reports no additional complaints Physical Exam Const General: cooperative, healthy appearing, comfortable, no acute distress, well developed, alert and awake Orientation/consciousness: patient oriented x3 Limitations: no limitations HEENT Head: Yes normal to inspection, Yes normocephalic and Yes atraumatic Ears: hearing grossly normal bilaterally Eyes General: appearance normal, both eyes and all related structures Neck Neck: Yes normal visual inspection and Yes trachea midline Chest Chest palpation & inspection: normal inspection of the chest Resp Effort & Inspection: normal respiratory effort and able to speak in complete sentences Cardio Rate: regular rate GI Inspection: Yes normal to inspection General: Yes no CVA tenderness Back/Spine/Pelvis Back: no CVA tenderness Skin General skin exam: no rashes or lesions noted Neuro General: patient oriented x3 Extrem General: Yes normal to inspection Psych Appearance: grossly normal and well kempt Mental Status: mental status grossly normal Speech and movement: Normal speech and movement present and Clear speech present Affect: normal affect Attitude: cooperative Thought process: Normal thought process present Thought content: Normal thought content present Insight: Fair insight present (Psych) Judgement: Fair judgement present (Psych) Results Reviewed Results Reviewed: Date of Service: 02/20/25 Procedure(s): US renal BI FINDINGS: RIGHT KIDNEY: 12.1 x 3.5 x 5.1 cm (SAG x AP x TRV). The kidney is normal in size, contour, and echogenicity. Renal cortical thickness is normal. Mid pole calculus measuring 3 mm. No suspicious lesion. No hydronephrosis. LEFT KIDNEY: 12.4 x 4.8 x 3.7 cm (SAG x AP x TRV). The kidney is normal in size, contour, and echogenicity. Renal cortical thickness is normal. No calculi or focal parenchymal lesions. No hydronephrosis. IMPRESSION: 1. Nonobstructing right renal calculus. Otherwise normal exam. Assessment & Plan Assessment & Plan (1) Renal calculi: Code(s): N20.0 - Calculus of kidney Category: Medical Plan In office urinalysis results reviewed with the patient today; as noted above. Recent renal imaging results reviewed with the patient today; as noted above. We did discussed at length potential causes of nephrolithiasis as well as further interventions and risks and benefits of these interventions. Restart vitamin B6 as discussed and prescribed. She currently denies any bothersome urinary issues. She reports be happy with current voiding parameters. We did discussed further workup to include Litholink and labs. All questions were answered. Will continue with surveillance monitoring. Will obtain renal ultrasound in 1 year. Follow-up in 1 year with imaging; or sooner with any issues, concerns, and or questions Orders: Orders US renal BI 1 Year N20.0 - Calculus of kidney Medications: Refilled pyridoxine (vitamin B6) 100 mg PO DAILY 90 tabs 4RF 90 days Patient Instructions: The patient had an opportunity to ask questions regarding the treatment plan. All questions were answered. Physical exam, labs, and imaging were discussed and reviewed in detail. As well as risks, benefits, and discussion of treatment choices. No major barriers to understanding were identified. The patient expressed understanding and agreement with the above treatment plan. The patient was made aware they should contact our office by phone for worsening of their current condition, the appearance of new symptoms, or with any questions or concerns. Compliance is encouraged with any medications and follow up testing that is ordered. It is a privilege to be allowed the opportunity to participate in? your urological care.? Again, if you have any questions or concerns If you have any questions or concerns please do not hesitate to contact me. The office is [phone]. This note is constructed using voice recognition software. While every effort has been made to ensure accuracy mini baccarat dealer errors may have been included. Yours sincerely, AKSHAT Lebron Coding Level of Care Code Est Pt Level 3 (65875) Diagnoses Renal calculi N20.0
--- OUTSIDE RECORDS SUMMARY | 2025-04-09 11:10 | XMS_ITS | Clinical Summary ---
Author Organization [facility] ity Address [address] [place] [address] Care Team Providers Care Environmental Compliance Engineer Name Role Phone Unavailable Primary Care Provider [...] Cervical Cancer Screening: P ap Smear 2011 HPV Vaccines (1 - 3-dose SCD M series) 2017 Depression Screening 07/04/2024 COVID-19 Vaccine ( - 2023-2 5 season) 2025 Influenza Vaccine (#1) 2025 RSV Immunization Adult Patie nts (1 - 1-dose 75+ series) 2065 HIB Vaccines Aged Out No longer eligi [...]
--- OUTSIDE RECORDS SUMMARY | 2025-04-09 11:10 | XMS_ITS | Encounter Summary ---
Author Organization [employer] Address [address] [place] [address] Care Team Providers Care Shipping Receiving Clerk Name Role Phone Angelita Vidales Primary Care Provider [phone] Reason for Visit * Reason Onset Date Comments Letter for School/Work 12/01/2023 Encounter Details Date Type Department Care Team ([facility] st Contact Info) Description 12/01/2023 Telephone [facility] [address], [place] [phone] Angelita Vidales FNP [address] [place], [place] [phone] Letter for School/Work Social History Tobacco Use Types Packs/Day Years [...] Patient Health Questionnaire-2 Score 6 11/23/2023 Comments Unknown Sex and Gender Information Value Date Recorded Sex Assigned at Female 05/03/2022 10:36 AM EDT Legal Sex Female 10:36 AM EDT Gender Identity Female 05/03/2022 10:36 AM EDT Sexual Orientation Straight 05/03/2022 10 :36 AM EDT documented as of this encounter Miscellaneous Notes * Telephone Encounter - Estefany Baez - 12/01/2023 11:27 AM EDT Tc from pt requesting a letter stating her medical conditions and restrictions from work. Pt is also requesting for the letter to state pt will need a better chair. Any questions, contact pt at [phone] documented in this encounter Plan of Treatment Not on file documented as of this encounter Visit Diagnoses Not on filedocumented in this encounter Additional Health Concerns Assessment Noted Time PHQ-9 Depression Total Score: 18 024 1:59 PM EDT documented as of this encounter Care Teams Shipping Receiving Clerk Relationship Specialty Start Date End Date Angelita Vidales FNP [address] [place] [id number] PCP - General Family Medicine 03/01/22 documented as of this encounter
--- OUTSIDE RECORDS SUMMARY | 2025-04-09 11:10 | XMS_ITS | Clinical Summary ---
Author Organization [employer] Address [address] [place] [address] Care Team Providers Care Air Conditioning Technician Name Role Phone ReaganAngelita limon MILLICENT Primary Care Provider [phone] Allergies Active Allergy Reactions Criticality Noted Date Comments Prednisone Swelling 05/11/2024 Patient feels her throat closes when she takes it Medications * This document contains information received from the source organization and may not represent a complete record from that organization. pyridoxine (Vitamin B-6) 100 MG tablet Take 100 mg by mouth in the morning. 022 Active nortriptyline (Pamelor) 50 MG capsule Take 50 mg by mouth in the morning. 022 Active Symbicort 160-4.5 MCG/ACT inhaler Inhale 2 puffs 2 times daily. 022 Active omeprazole (PriLOSEC) [address] capsuleIndicati ons:Gastroesoph ageal reflux disease, unspecified whether esophagitis present TAKE 1 CAPSULE BY MOUTH TWICE DAILY FOR FOURTEEN DAYS 28 capsule 1 023 Active gabapentin (Neurontin) 300 MG capsule Take 1 capsule (300 mg) by mouth at bedtime. 30 capsule 023 Active albuterol 108 (90 Base) MCG/ACT inhalerIndicati ons:Mild intermittent asthma with exacerbation Inhale 2 puffs every 6 (six) hours if needed for wheezing. 18 g 023 Active montelukast (Singulair) 10 MG tablet Take 10 mg by mouth at bedtime. 023 Active Magnesium 400 MG capsuleIndicati ons:Sleep difficulties Take 400 mg by mouth at bedtime. (Sleep) 90 capsule 3 024 Active cetirizine (ZyrTEC) 10 MG tablet Take 1 tablet (10 mg) by mouth Once per day. 30 tablet 2 024 Active naproxen (Naprosyn) 500 MG tabletIndicatio ns:Chest pain, unspecified type TAKE 1 TABLET BY MOUTH TWICE DAILY WITH FOOD NEEDED FOR PAIN 30 tablet 024 Active Diclofenac Sodium 1 % gelIndications: Costochondritis , acute APPLY ONE INCH RIBBON TO THE AFFECTED AREA EVERY MORNING AND EVERY NIGHT AT BEDTIME 100 g 024 Active cetirizine (ZyrTEC) 10 MG tabletIndicatio ns:Adverse effect of prednisone, initial encounter Take 1 tablet (10 mg) by mouth 2 times daily. 20 tablet 024 2024 Active econazole nitrate 1 % creamIndication s:Intertrigo APPLY TOPICALLY TO THE AFFECTED AREA(S) UNDER THE breast TWICE DAILY 30 g 1 025 Active cholecalciferol (Vitamin D-3) 50 MCG (2000 UT) tablet TAKE 1 TABLET BY MOUTH EVERY MORNING 90 tablet 1 025 Active Acetaminophen Extra Strength 500 MG tablet TAKE 1 TABLET BY MOUTH EVERY 6-8 HOURS NEEDED FOR PAIN OR FEVER 100 tablet 2 025 Active fluticasone (Flonase) 50 MCG/ACT nasal spray Administer 1 spray into each nostril Once per day. 16 g 2 025 Active Zepbound 2.5 MG/0.5ML solution auto-injectorIn dications:Class 1 obesity with body mass index (BMI) of 34.0 to 34.9 in adult, unspecified obesity type, unspecified whether serious comorbidity present INJECT ONE PEN (=2.5MG) SUBCUTANEOUSLY ONCE A WEEK DIRECTED 2 mL 1 025 Active tamsulosin (Flomax) 0.4 MG 24 hr capsule Take 1 capsule (0.4 mg) by mouth Once per day. Take for up to 30 days to help pass kidney stone. 30 capsule 025 Active famotidine (Pepcid) 20 MG tablet TAKE 1 TABLET BY MOUTH TWICE DAILY IN THE MORNING AND AT BEDTIME NEEDED FOR HEARTBURN OR INDIGESTION 180 tablet 1 025 Active famotidine (Pepcid) 20 MG tablet Take 1 tablet (20 mg) by mouth if needed in the morning and at bedtime for heartburn or indigestion. 180 tablet 1 024 2024 Discontinued Active Problems Problem Noted Date Diagnosed Date Patellofemoral arthritis 01/02/2025 Assessment & Plan (01/02/2025 7:48 PM EDT): 10/29/2024: [facility] consult for right knee pain. MRI from 3 years ago shows patellofemoral arthritis. Knee aspirated for 10 cc clear fluid, injected with corticosteroid. Intertrigo 05/11/2024 Polyarthralgia 01/12/2024 Assessment & Plan (01/12/2024 6:32 AM EDT): Pain sites include back, upper and lower extremities. No red flag symptoms Lab eval: LIZETT, RF, sed rate, and CRP WNL November 2023 Ddx: fibromyalgia, unspecified autoimmune condition, chronic fatigue syndrome, myofascial pain syndrome Encouraged symptomatic management, plan for physical therapy for lower back Left carpal tunnel syndrome 06/18/2023 Healthcare maintenance 05/25/2023 Overview (11/26/2023): Pap: NILM, HPV neg in Aug 2020 OPH: CEE 10/07/[address] Rangel. Follow up 2 years Assessment & Plan (01/02/2025 7:56 PM EDT): Due for routine lab work, ordered today Assessment & Plan (01/12/2024 6:20 AM EDT): Declines PCV20 vaccine today Assessment & Plan (05/28/2023 11:32 AM EST): Due for repeat pap, schedule Numbness and tingling of both legs 10/24/2022 Overview (10/07/2024): Evaluated by [facility] Jun 2024: Venous insufficiency testing US performed 06/20/24. She continues to endorse numbness and tingling in hands and feet. No venous insufficiency noted on US. Rec compression stockings, elevation. Ulnar neuropathy of both upper extremities 10/24 Overview (07/07/2023): EMG results 10/14/22: IMPRESSION: 1. Mild bilateral ulnar neuropathy across cubital tunnel. 2. Mild left median neuropathy across carpal tunnel. October 2022 & Jul 2023 - Referred to [facility]o - Hand specialist. Assessment & Plan (07/07/2023 10:47 AM EST): -Encouraged to continue with symptomatic management at home, re-referral for [facility] Ortho hand specialist -Return precautions reviewed Assessment & Plan (06/18/2023 11:45 AM EST): -Encouraged to continue with symptomatic management at home, referral info for [facility]o hand specialist provided. Pt planning to call to schedule initial appt -Return precautions reviewed Assessment & Plan (11/01/2022 6:06 PM EDT): Follow up with specialist as needed Moderate asthma 08/01/2022 Overview (05/28/2023): -Follows with [facility] (Dr. Cifuentes) -Continue with the following med regimen: Symbicort 160-4.5mcg/act - 2 puffs BID Montelukast 10mg PO nightly albuterol PRN Assessment & Plan (05/28/2023 11:32 AM EST): Symptoms resolved following recent exacerbation Depressive disorder 2022 Dream anxiety disorder 2022 Overview (10/07/2024): Home sleep study through [facility] did not demonstrate ANN (per consult note Aug 2024) Muscle pain 2022 Overview (10/05/2022): -Continues with nortriptyline 50mg daily -Consider fibro vs other -Due to current tx with nortriptyline, will initiate gabapentin 300mg nightly. Reviewed med safety and SE Class 1 obesity with body ma ss index (BMI) of 34.0 to 34.9 in adult 2022 Assessment & Plan (01/02/2025 7:56 PM EDT): Previously lost 14 lbs over 2 months (6% BW) w/ GLP-1 Wegovy - Starting weight: 106kg (01/02/25) - Goal to cont with combination pharmacotherapy and lifestyle interventions: goal 150mins physical activity weekly, diet rich in vegetables/fiber and limited in trans/saturated fats - Cont Zepbound 2.5mg subcutaneous weekly. Reviewed med use and SE Assessment & Plan (10/07/2024 2:46 PM EDT): Previously lost 14 lbs over 2 months (6% BW) w/ GLP-1 Wegovy Goal to cont with combination pharmacotherapy and lifestyle interventions: goal 150mins physical activity weekly, diet rich in vegetables/fiber and limited in trans/saturated fats Start Zepbound 2.5mg subcutaneous weekly. If not covered plan for phentermine/topiramate PO medication combination. Reviewed med safety and SE. Assessment & Plan (05/14/2024 5:31 PM EST): Weight loss: 14 lbs over 2 months (6% BW) Encouraged to cont with combination pharmacotherapy and lifestyle interventions. Report any med SE. Pharmacotherapy: Wegovy PA approved 01/12/24 Dose: 0.25mg weekly - initiated 01/24/24 Dose: 0.5mg weekly - Initiated 02/21/24 Dose: 1mg weekly - Initiated 03/21/24 Dose: 1.7mg weekly - START 04/18/24 RX for Zepbound placed 05/14/24 to start 07/04/24. Assessment & Plan (03/29/2024 8:03 PM EDT): Weight loss: 14 lbs over 2 months (6% BW) Encouraged to cont with combination pharmacotherapy and lifestyle interventions. Report any med SE. Pharmacotherapy: Wegovy PA approved 01/12/24 Dose: 0.25mg weekly - initiated 01/24/24 Dose: 0.5mg weekly - Initiated 02/21/24 Dose: 1mg weekly - Initiated 03/21/24 Dose: 1.7mg weekly - START 04/18/24 Assessment & Plan (02/04/2024 11:07 AM EDT): Nutrition: limited food intake throughout the day, reviewed nutrition/dietary intake Exercise: currently participating in physical therapy to assist with back pain Sleep: intermittent difficulties, see below Pharmacotherapy: Wegovy PA approved 01/12/24 Dose: 0.25mg weekly - 01/24/24 Dose: 0.5mg weekly - START 02/21/24 Encouraged to follow up with any further med Side effects Assessment & Plan (01/12/2024 6:34 AM EDT): -Shared decision making to proceed with PA for Wegovy, Reviewed med safety and SE -Discussed importance of continued nutritional interventions as well as routine physical activity Vitamin D deficiency 2022 Resolved Problems Problem Noted Date Diagnosed Date Resolved Date Prednisone adverse reaction 05/11/2024 10/07/2024 Allergic reaction 05/11/2024 10/07/2024 Assessment & Plan (05/11/2024 4:37 PM EST): ED precautions reviewed with patient Poison leanne dermatitis 05/07/20242024 Assessment & Plan (05/07/2024 6:24 PM EST): Due to severity of symptoms will treat with oral prednisone Side effects reviewed Viral upper respiratory tract infection 03/14/2024 03/29/2024 Assessment & Plan (03/14/2024 12:11 PM EDT): - probably had it two weeks ago and is now improving - use Flonase + Zyrtec and f/u with PCP - advised to hold Wecovy next week if symptoms do not improve completely as she may be having side effects from the medication Nasal congestion 03/14/2024 03/29/2024 Throat pain 03/14/2024 03/29/2024 Costochondritis, acute 10/18/202301/11 Assessment & Plan (10/18/2023 4:38 PM EDT): Chest pain is compatible with costochondritis, cardiac etiology is very unlikely Apply heat on affected area Naproxen 500mg BID as needed with full stomach or skip dose and use local diclofenac gel Flexeril 5mg Q 8hrs, I advise do not drive while on this medication Numbness of lip 10/24/2022 11/01/2022 Left median nerve neuropathy 10/24/2022 05/28/2023 Overview (10/24/2022): EMG 10/14/22 Along carpal tunnel Mild Ganglion cyst of right foot 2022 2022 Kidney stone 2022 10/24/2022 Assessment & Plan (10/05/2022 9:59 AM EDT): -Hx of kidney stone -Last renal U/S in September 2021 w/ question of right renal stone -Pt w/o urinary symptoms, no fever, chills, N/V/D, but interested in re-checking u/s. Order placed. Encounters Date Type Department Care Team Description 03/14/2025 Refill [facility] MEDIC[facility] [address] [place] [address] Angelita Vidales FNP 02/20/2025 Refill [facility] [address], [place] [phone] Angelita Vidales FNP Class 1 obesity with body mass index (BMI) of 34.0 to 34.9 in adult, unspecified obesity type, unspecified whether serious comorbidity present 01/21/2025 Telephone [facility] MEDICINE [address], [place] [phone] Angelita Vidales FNP Referral 01/18/2025 Results Follow-Up [facility] [address], [place] [phone] Angelita Vidales FNP Lipid Panel, Standard, Hemoglobin A1c, TSH with Reflex to Free T4, Additional followed-up results: 6 01/15/2025 Telephone [facility] MEDICINE [address], [place] [phone] Angelita Vidales FNP Nurse Triage 01/14/2025 Refill [facility] MED & PEDS [address] [place] [address] Angelita Vidales FNP 01/14/2025 Refill [facility] WALK-IN CENTER [address] [place] [address] Lizett Aguilar MD 01/07/2025 Results Follow-Up [facility] [address] [place] [phone] Ya Oneill, HENRY Chlamydia/Trichomonas /Neisseria gonorrhoeae, PCR, Urine from Last 3 Months Immunizations Immunization Administration Dates Next Due HPV 9-Valent 02/20/2009 HPV, Quadrivalent 06/23/2012,04/25/2012,02/21/20 09 Hep A, Adult 05/31/2019 Hep B, adult 09/21/2021,08/06/2019,06/29/2019 Influenza Injectable Quadriv alant Preservative Free IIV4 MDCK 05/25/2021 Influenza injectable quadriv alent IIV4 with preservative 04/16/2020 Influenza injectable quadriv alent preservative free 03/03/2023,04/25/2020,05/25/2019 Influenza, IIV3, injectable 06/15/2016, 1,05/22/2008 Influenza, seasonal, injecta ble, preservative free 04/24/2024,06/08/2022,04/14/2011 Meningococcal ACWY, unspecified 02/20/2009 Meningococcal MCV4, Unspecified 02/20/2009 Moderna Covid-19 Vaccine 12+ 08/07/2020,07/31/19 21 Tdap 11/19/2020, 7,07/22/2011,06/27 Family History Medical History Relation Name Comments Anxiety disorder Brother Depression Brother Anxiety disorder Father Depression Father Anxiety disorder Mother Bipolar disorder Mother Depression Mother Schizophrenia Mother Glaucoma Sister Stroke Sister Relation Name Status Comments Brother Father Mother Sister Social History Tobacco Use Types Packs/Day Years Used Date Smoking Tobacco: Never Passive Smoke Exposure: Never Smokeless Tobacco: Never Tobacco Cessation:Counseling Given: Not Answered Alcohol Use Standard Drinks/Week Comments Never 0 (1 standard drink = 0.6 oz pur e alcohol) Depression Answer Date Recorded Patient Health Questionnaire-9 Score 6 10/07/2024 Patient Health Questionnaire-9 Score 6 10/07/2024 Last PHQ-9: Questionnaire Data Not on file 0 10/07/2024 Housing Stability Answer Date Recorded What is your housing situation today? I do not have housing (Staying with others, in a hotel, in a residential, living outside on the street, on a beach, in a car, or in a park 10/07/[address] you li ve. Do you have problems with any of the following? None of the above 10/07/2024 Food Insecurity Answer Date Recorded Within the past 12 months, y ou worried that your food would run out before you got money to buy more: Never True 10/07/2024 Within the past 12 months,th e food you bought just didn't last and you didn't have enough money to get more: Never True 12/2024 Transportation Answer Date Recorded In the past 12 months, has l ack of transportation kept you from medical appts, meetings, work or from getting things needed for daily living? No 10/07/2024 Utilities Answer Date Recorded In the past 12 months, has t he electric, gas, oil or water company threatened to shut off services in your home? No 10/07/2024 Depression Answer Date Recorded Patient Health Questionnaire-2 Score 0 10/07/2024 Internet Access Answer Date Recorded Internet Access Q1 Yes 10/07/2024 Internet Access Q2 Not on file 10/07/2024 Comments No Sex and Gender Information Value Date Recorded Sex Assigned at Female 05/03/2022 10:36 AM EDT Legal Sex Female 10:36 AM EDT Gender Identity Female 05/03/2022 10:36 AM EDT Sexual Orientation Straight 05/03/2022 10 :36 AM EDT Last Filed Vital Signs Vital Sign Reading Time Taken Comments Blood Pressure 136/82 01/02/2025 10:11 AM EDT Pulse 86 01/02/2025 10:11 AM EDT Temperature 36.3 C (97.3 F) 01/02/2025 10:11 AM EDT Respiratory Rate 20 01/02/2025 10:11 AM EDT Oxygen Saturation 100% 01/02/2025 10:11 AM EDT Inhaled Oxygen Concentration - - Weight 106 kg (232 lb 9.6 oz) 01/02/2025 10:11 A M EDT Height 172.7 cm (5' 8 ) 01/02/2025 10:11 AM EDT Body Mass Index 35.37 01/02/2025 10:11 AM EDT Plan of Treatment Health Maintenance Due Date Last Done Comments Family Planning (PISQ) 2005 Pneumococcal Vaccine: Pediatrics (0 to 5 Years) and At-Risk Patients (6 to 49) Years (1 of 2 - PCV) 2009 HPV Vaccines (3 - 3-dose series) 09/15/2012 06/23/2012, 04/25/2012, 02/20/2009, Additional history exists COVID-19 Vaccine ( season) 2025 04/08/2023, 07/17/2021, 08/07/2020, Additional history exists Influenza Vaccine (#1) 2025 , 03/03/2023, 06/08/2022, Additional history exists Cervical Cancer Screening 08/06/2025 HPV/Cotest 08/06/2025 08/06/2020 Pap Smear 08/06/2025 08/06/2020 Tobacco Screening 10/05/2025 10/05/2024 Depression Screening 10/07/2025 10/07/2024, 10/08/19 25 SDOH Screening 10/07/2025 10/07/2024 Alcohol/Substance Use Screening 01/02/2026 01/02/2025 Disability Screening 01/02/2026 01/02/2025 Lipid Panel 01/03/2030 01/03/2025, 07/05, 08/17/2021 DTaP/Tdap/Td Vaccines (5 - Td or Tdap) 11/19/2030 11/19/2020, 08/18/2016, 07/22/2011, Additional history exists Zoster Vaccines (1 of 2) 2040 RSV Patients and Patients Aged 60 years or older (1 - 1-dose 75+ series) 2065 Meningococcal Vaccine Completed 02/20/2009, 009 Hepatitis A Vaccines Aged Out 05/31/2019 No long er eligible based on patient's age to complete this topic Hepatitis B Vaccines Completed 09/21/2021, 08/06/2019, 06/29/2019 HIV Screening Completed 01/03/2025, 07/05, 09/22/2021, Additional history exists Hepatitis C Screening Completed 01/03/2025 , 07/28/2022, 09/22/2021, Additional history exists HIB Vaccines Aged Out No longer eligi ble based on patient's age to complete this topic IPV Vaccines Aged Out No longer eligi ble based on patient's age to complete this topic Meningococcal B Vaccine Aged Out No l onger eligible based on patient's age to complete this topic RSV under 20 months Aged Out No longe r eligible based on patient's age to complete this topic Rotavirus Vaccines Aged Out No longer eligible based on patient's age to complete this topic Procedures Procedure Name Priority Date/Time Associated Diagnosis Comments US RENAL COMPLETE Routine 02/20/2025 12: 41 PM EDT History of nephrolithiasis Flank pain HEPATITIS C VIRAL RNA, QUANTITATIVE, REAL-TIME PCR Routine 01/03/2025 9:03 AM EDT Healthcare maintenance HIV 1/2 ANTIGEN/ANTIBODY, FOURTH GENERATION W/RFL Routine 01/03/2025 9:03 AM EDT Healthcare maintenance LIPID PANEL, STANDARD Routine 01/03/2025 9:03 AM EDT Healthcare maintenance HM PAP/HPV Routine 08/06/2020 from Last 3 Months or Most Recently Relevant to Health Maintenance Results * US Renal Complete (02/20/2025 12:41 PM EDT) Anatomical Region Laterality Modality Kidney Ultrasound 02/20/2025 12:4 1 PM EDT Narrative 02/20/2025 1:23 PM EDT [address] [address] Ultrasound Report Signed Patient: Dale Mejía MR#: [id number] : 1990 Acct:[id number] Age/Sex: 34 / F ADM Date: 02/20/25 Loc: HO.US Attending Dr: Angelita RICKS Ordering Physician: Angelita Vidales Date of Service: 02/20/25 Procedure(s): US renal BI Accession Number(s): [id number] cc: Angelita Vidales EXAMINATION: US RETROPERITONEAL LIMITED (RENAL ONLY) CLINICAL INFORMATION: Kidney pain . COMPARISON: 10/06/2022. TECHNIQUE: Real-time imaging of the kidneys. FINDINGS: RIGHT KIDNEY: 12.1 x 3.5 x 5.1 cm (SAG x AP x TRV). The kidney is normal in size, contour, and echogenicity. Renal cortical thickness is normal. Mid pole calculus measuring 3 mm. No suspicious lesion. No hydronephrosis. LEFT KIDNEY: 12.4 x 4.8 x 3.7 cm (SAG x AP x TRV). The kidney is normal in size, contour, and echogenicity. Renal cortical thickness is normal. No calculi or focal parenchymal lesions. No hydronephrosis. US/US renal BI IMPRESSION: 1. Nonobstructing right renal calculus. Otherwise normal exam. Electronically signed by: Sriram Hills MD 02/20/2025 01:20 PM EDT Dictated By: Sriram Hills MD Signed By: <Electronically signed by Sriram Hills MD in OV> 02/20/25 1320 DD/ 1241 TD/TT: 02/20/25 1246 [employer] Author: Procedure Note Donotuseinterpreter, Image - 02/20/[address] [address] Ultrasound Report Signed Patient: Dale Mejía [facility]#: [id number] : 1990Acct:[id number] Age/Sex: 34 / FADM Date: 02/20/25 Loc: HO.US Attending Dr: Angelita RICKS Ordering Physician: Angelita Vidales Date of Service: 02/20/25 Procedure(s): US renal BI Accession Number(s): [id number] cc: Angelita Vidales EXAMINATION: US RETROPERITONEAL LIMITED (RENAL ONLY) CLINICAL INFORMATION: Kidney pain . COMPARISON: 10/06/2022. TECHNIQUE: Real-time imaging of the kidneys. FINDINGS: RIGHT KIDNEY: 12.1 x 3.5 x 5.1 cm (SAG x AP x TRV). The kidney is normal in size, contour, and echogenicity. Renal cortical thickness is normal. Mid pole calculus measuring 3 mm. No suspicious lesion. No hydronephrosis. LEFT KIDNEY: 12.4 x 4.8 x 3.7 cm (SAG x AP x TRV). The kidney is normal in size, contour, and echogenicity. Renal cortical thickness is normal. No calculi or focal parenchymal lesions. No hydronephrosis. US/US renal BI IMPRESSION: 1. Nonobstructing right renal calculus. Otherwise normal exam. Electronically signed by: Sriram Hills MD 02/20/2025 01:20 PM EDT Dictated By: Sriram Hills MD Signed By: <Electronically signed by Sriram Hills MD in OV> 02/20/25 1320 DD/ 1241 TD/TT: 02/20/25 1246 [employer] Author: Angelita RICKS IMG US PROCEDURES Final Result * Hepatitis C Viral RNA, Quantitative, Real-Time PCR (01/03/2025 9:03 AM EDT) Hepatitis C Viral Load <15 NOT DETECTED NOT DETECTED IU/mL [facility] HCV Log PCR <1.18 NOT DETECTED NOT DETECTED Log IU/mL [facility] Comment:For additional infor mation, please refer [email or web address]/faq/BBF29e4(This link is being provided for informational/educational purposes only.)THIS TEST WAS PERFORMED AT:[employer] [place] [phone] ARSHAD MD Blood 01/03/2025 9:03 AM EDT 01/03/2025 11:06 AM EDT Angelita Vidales [facility] BLOOD ORDERABLES Final Res ult Performing Organization Address [facility]/ZIP Co de Phone Number [facility] [address] [place] [phone] * HIV-1/2 Antigen and Antibodies, Fourth Generation, with Reflexes (01/03/2025 9:03 AM EDT) HIV AB/AG Nonreactive Nonreactive [facility] Comment:HIV-1 p24 Ag and/or HIV-1/HIV-2 Ab not detected.A test result that is nonreactive does not exclude thepossibility of exposure to or infection with HIV-1 and/orHIV-2. Nonreactive results in this assay for individualswith prior exposure to HIV-1 and/or HIV-2 may be due toantigen and antibody levels that are below the limit ofdetection of this assay.[employer] HIV Ag/Ab Combo assay result andsupplemental assay results should be interpreted inconjunction with the patient's clinical presentation,history and other laboratory results. If the results areinconsistent with clinical evidence, additional testing issuggested to confirm the result. Blood Venous blood specimen / Unknown 01/03/2025 9:03 AM EDT 01/03/2025 11:06 AM EDT Angelita Vidales [facility] BLOOD ORDERABLES Final Res ult Performing Organization Address [facility] Co de Phone Number [facility] [address] [place] [phone] * (ABNORMAL) Lipid Panel, Standard (01/03/2025 9:03 AM EDT) Triglycerides 99 <150 mg/dL [facility] Comment:Desirable Triglyceri de: less than 150 mg/dLBorderline High Triglyceride 150-199 mg/dLHigh Triglyceride: 200-499 mg/dLVery High Triglyceride: greater than or equal to 5OO mg/dL Cholesterol 190 <200 mg/dL [facility] Comment:Desirable Cholestero l: less than 200 mg/dLBorderline High Cholesterol: 200-239 mg/dLHigh Cholesterol: greater than 239 mg/dL LDL Cholesterol Calculated 113(H) <100 mg/dL [facility] Comment:Desirable LDL: less than 100 mg/dLNear Optimal/Above Optimal LDL: 110- 129 mg/dLBorderline High LDL: 130-159 mg/dLHigh LDL: 160-189 mg/dLVery High LDL: greater than or equal to 190 mg/dL HDL Cholesterol 58 >40 mg/dL [facility] Comment:Desirable HDL: great er than 40 mg/dL Note: This HDL assay may give artificially low results in patients with liver disease. Blood Venous blood specimen / Unknown 01/03/2025 9:03 AM EDT 01/03/2025 11:06 AM EDT Angelita Vidales [employer] [facility] BLOOD ORDERABLES Final Res ult [facility] [address] [place] [phone] * Pap Smear (08/06/2020) Pap Negative for intraephithelial lesion or malignancy Negative for intraephithelial lesion or malignancy, Other HPV Not Detected Undetected, Indeterminate, Quantitative, Not Detected Historical Provider HEALTH MAINTENANCE Final Result from Last 3 Months or Most Recently Relevant to Health Maintenance Insurance [employer] Care Teams Air Conditioning Technician Relationship Specialty Start Date End Date Angelita Vidales FNP [address] [place] [address] PCP - General Family Medicine 03/01/22
--- OUTSIDE RECORDS SUMMARY | 2025-04-09 11:10 | XMS_ITS | Encounter Summary ---
Author Organization [employer] Address [address] [facility] 7t [place] [address] Care Team Providers Care Dielectric Embossing Machine Operator Name Role Phone Angelita Vidales MILLICENT Primary Care Provider [phone] Reason for Visit * Reason Comments Med Refill Encounter Details Date Type Department Care Team ([facility] Contact Info) Description 04/01/2024 Refill [facility] [address] [place], [place] [phone] Desirae Kahn MD [address] [place] [address] Chest pain, unspecified type; Costochondritis, acute Social [...] documented as of this encounter Care Teams Dielectric Embossing Machine Operator Relationship Specialty Start Date End Date Angelita Vidales FNP [address] [place] [address] PCP - General Family Medicine 03/01/22 documented as of this encounter
--- OUTSIDE RECORDS SUMMARY | 2025-04-09 11:10 | XMS_ITS | Encounter Summary ---
Author Organization [employer] Address 75 [facility] 7t [place] [address] Care Team Providers Care Radiologic Technologist Mammogram Name Role Phone Angelita Vidales Primary Care Provider [phone] Reason for Visit * Reason Onset Date Comments Med Refill 12/01/2023 Encounter Details Date Type Department Care Team ([facility] Contact Info) Description 12/01/2023 Telephone [facility] MED & PEDS [address] [place], [place] [phone] Angelita Vidales FNP [address] [place] [address] Med Refill Social History Tobacco Use Types Packs/Day Years [...] your housing situation today? I have braden sing 09/22/[address] you li [...] Telephone Encounter - Estefany Baez - 12/01/2023 11:30 AM EDT TC from pt requesting medication refill. Medications needing refill : cyclobenzaprine (Flexeril) 5 MG tablet To be sent to: [id number] [place], [place] - [facility] MARIA ESTHER CONTRERAS AT [facility] documented in this encounter Plan of Treatment Not on file documented as of this encounter Visit Diagnoses Not on filedocumented in this encounter Additional Health Concerns Assessment Noted Time PHQ-9 Depression Total Score: 18 024 1:59 PM EDT documented as of this encounter Care Teams Radiologic Technologist Mammogram Relationship Specialty Start Date End Date Angelita Vidales FNP [address] [place] [address] PCP - General Family Medicine 03/01/22 documented as of this encounter
--- OUTSIDE RECORDS SUMMARY | 2025-04-09 11:10 | XMS_ITS | Encounter Summary ---
Author Organization [employer] Address [address] [place] [address] 7 [place] [address] Care Team Providers Care Ribbon Lapper Tender Name Role Phone Angelita Vidales Primary Care Provider [phone] Encounter Details Date Type Department Care Team (Late st Contact Info) Description 06/08/2022 Telephone [facility] MED[facility] [address] [place], [place] [phone] Marisol Cruz MD [address] [place], [place] [phone] Social History Tobacco Use Types Packs/Day Years Used Date Smoking Tobacco: Never Assessed Comments Unknown Sex and Gender Information Value Date Recorded Sex Assigned at Female 05/03/2022 10:36 AM EDT Legal Sex Female 10:36 AM EDT Gender Identity Female 05/03/2022 10:36 AM EDT Sexual Orientation Straight 05/03/2022 10 :36 AM EDT COVID-19 Exposure Response Date Recorded In the last 10 days, have yo u been in contact with someone who was confirmed or suspected to have Coronavirus/COVID-19? Unable to assess 06/08/2022 11:45 AM EST documented as of this encounter Plan of Treatment Not on file documented as of this encounter Visit Diagnoses Not on filedocumented in this encounter Care Teams Ribbon Lapper Tender Relationship Specialty Start Date End Date Angelita Vidales FNP [address] [place] [address] PCP - General Family Medicine 03/01/22 documented as of this encounter
== END 2025-04-09 10:14 | disposition home or self-care (01) ==
LOC: HO.HUSH 09:45
PROVIDERS: PCP Registered Nurse; Visit Provider Nurse Practitioner Family
DX: N20.0 Calculus of kidney (principal); Z13.9 Encounter for screening, unspecified
CPT/HCPCS: 99213

== ENCOUNTER → 2025-04-09 09:44 | Outpatient (BNVA) | payer MEDICAID, SELFPAY | PROVIDERS: PCP Registered Nurse; Visit Provider Nurse Practitioner Family | DX: N20.0 Calculus of kidney (principal); Z13.9 Encounter for screening, unspecified | CPT/HCPCS: 81003; 99212 ==

== ENCOUNTER 2025-05-02 13:13 | Outpatient (AMB) | payer MEDICAID, SELFPAY ==
[2025-05-02 13:14] VITALS: BP 118/72; PULSE 83; O2SAT 98; BMI 35.4
--- NOTE | 2025-05-02 13:14 | MHC.OFFVIS ---
Vital Signs 05/02/25 13:14 Height 5 ft 8 in Weight 233 lb BMI 35.4 BP 118/72 Blood Pressure Location Rt brachial Position Sitting Pulse 83 Pulse Source Pulse Oximeter Pulse Oximetry (%) 98 Oxygen Delivery Method Room Air Intake Visit Reasons: asthma, wheezing, coughing Allergies No Known Allergies Allergy (Verified 05/02/25 13:20) HPI HPI asthma, wheezing, coughing: Details: 34-year-old lady, followed by Dr. Cifuentes for asthma, presents for sick visit complain of one-week history of nonproductive cough and wheezing, denied fever, chills, and phlegm production. Does complain of mild shortness of breath. 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 Current occupational exposures/hazards: No Gender identity: Female Review of Systems Const Denies daytime sleepiness, Denies excessive sweating, Denies fatigue, Denies fever(s), Denies lethargy, Denies malaise, Denies night sweats, Denies snoring and Denies weight loss Eyes Denies blurry vision and Denies itchy eyes ENT Denies nasal congestion, Denies post nasal drip, Denies sinus pain, Denies sinus pressure and Denies other ( Thrush) Card Denies chest pain, Denies pedal edema, Denies dyspnea, Reports dyspnea on exertion, Denies orthopnea and Denies paroxysmal nocturnal dyspnea Resp Reports cough, Denies hemoptysis, Denies excessive phlegm production, Denies dyspnea, Reports dyspnea on exertion, Denies snoring and Reports wheezing GI Denies abdominal pain and Denies heartburn Musc Denies myalgias, Denies arthralgias and Denies joint swelling Skin/Breast Denies rash Neuro Denies memory loss and Denies seizure-like activity Psych Denies abnormal sleep pattern, Denies anxiety and Denies memory loss Endo Denies excessive sweating, Denies fatigue and Denies heat intolerance Thiago/Lymph Denies easy bruising Aller/Immun Denies itchy eyes, Denies seasonal rhinorrhea and Reports wheezing Physical Exam Vital Signs: Last Vital Signs Pulse 83 05/02/25 13:14 BP 118/72 05/02/25 13:14 Pulse Ox 98 05/02/25 13:14 Oxygen Delivery Method Room Air 05/02/25 13:14 BMI result Body Mass Index 35.4 Const General: no acute distress and alert Nutritional Appearance: not obese Orientation/consciousness: Other orientation findings ( oriented) HEENT Head: Yes atraumatic Eyes General: appearance normal, both eyes and all related structures Sclerae: sclerae normal EOM: EOMs intact bilaterally Neck Neck: Yes supple Lymphatic: no lymphadenopathy noted Resp Effort & Inspection: normal respiratory effort and no use of accessory muscles Auscultation: wheezes (Mild bilateral expiratory) Cardio Rate: regular rate Rhythm: regular rhythm Heart sounds: no gallops, no murmurs and no rubs Skin General skin exam: other ( warm) Extrem General: No clubbing, No cyanosis and No edema Assessment & Plan Assessment & Plan (1) Asthma: Code(s): J45.909 - Unspecified asthma, uncomplicated Category: Medical Qualifiers: Asthma severity: moderate Asthma persistence: persistent Asthma complication type: uncomplicated Qualified Code(s): J45.40 - Moderate persistent asthma, uncomplicated Plan: Appears to have an upper respiratory infection related exacerbation of underlying asthma. Will treat with prednisone taper. Continue baseline regimen of Symbicort, Singulair, and albuterol MDI. Medications: New prednisone Take 4 tabs daily for 3 days, then go down by 1 tab every 3 days 10 mg PO DIRECTED 30 tabs 0RF Coding Level of Care Code Est Pt Level 3 (93768) Diagnoses Moderate persistent asthma without complication J45.40 Asthma severity: moderate Asthma persistence: persistent Asthma complication type: uncomplicated
--- OUTSIDE RECORDS SUMMARY | 2025-05-02 16:09 | XMS_ITS | Encounter Summary ---
Author Organization [employer] Address 75 [facility] 7t [place] [address] Care Team Providers Care Metal Cutter Name Role Phone Angelita Vidales MILLICENT Primary Care Provider [phone] Reason for Visit * Reason Comments Med Refill Encounter Details Date Type Department Care Team ([facility] Contact Info) Description 04/01/2024 Refill [facility] [address] [place], [place] [phone] Desirae Kahn MD [address] [place] [address] Chest pain, unspecified type; Costochondritis, acute Social [...] documented as of this encounter Care Teams Metal Cutter Relationship Specialty Start Date End Date Angelita Vidales FNP [address] [place] [address] PCP - General Family Medicine 03/01/22 documented as of this encounter
--- OUTSIDE RECORDS SUMMARY | 2025-05-02 16:09 | XMS_ITS | Data Portability ---
Author Organization [employer] [facility], [facility] Address [address] [place] [address] Care Team Providers Care Screw Supervisor Name Role Phone Unavailable Primary Care Provider [phone] Assessment Encounter Date Assessment Date Assessment LastModified [...] 2. Follow-up 4 weeks to check progress [facility] speech recognition shell assembler software was used to create portions of [...] 3v lt knee room 212 025 10/30/19 [facility], [address] [facility], [place] [address] [place] [address], [address], 14:59:05 Medication Orders None record ed. Patient TargetsNo targets recorded. Patient InstructionsNo instructions recorded. Reason for Referral None Reported. Results Created Date Observation Date Name Description Value Unit Range Abnormal Flag Note LastModifiedBy Organization Detail LastModifiedTime 10/30/1910/29/2024 XR, knee, 3 view http:/ [email or web address] ?Encry pted=s hAaTro YD8dLq bEUv6g %2BXZw aYqtaq 0bqfl% 2Fg9IQ a4ajBk vP9nXo QUaueC m3YtLR FvZlgJ JJ8mAn HZtai3 8w8485 AC0Kla n%2BBV qKhKiQ trMwF INTERFACE [facility] [address], [place], [address], 10/29/2024 11:04:10 10/30/19 25 10/29/2024 XR, knee, 3 view http:/ [email or web address] ?Encry pted=s hAaTro YD8dLq bEUv6g %2BXZw aYqtaq 0bqfl% 2Fg9IQ a4ajBk vP9nXo QUaueC m3YtLR FvZlgJ JJ8mAn HZtai3 5p7394 AC0Kla n%2BBV qKhKiQ trMwF INTERFACE [facility] [address], [place], [address], 10/29/2024 11:04:11 Result Notes Documentation Provider Name and Address Organization Details Recorded Time Xr, Knee, 3 View : [email or web address]? Encrypted=pwMrZoaAO2lUzlY Uv6g%8BEEvdPhedi9jppo%2Fg 8BVe3ltEwdC8vEfPWrvsKs3Dq TADoHmfLQQ5wRdTEgtd28n471 3OB6Cgsg%2BBVqKhKiQtrMwF Not Available [facility] 10/29/2024 11:0 4:10 Xr, Knee, 3 View : [email or web address] Encrypted=dhFcXoyOG0gQvpK Uv6g%7TMHezFroff0bsif%2Fg 2BXn5xqCaiG3zOmDIlbwOo2Qd HYAjYrcYIZ3aDyEQdlc28t545 6ZK6Ewad%2BBVqKhKiQtrMwF Not Available [facility] 10/29/2024 11:0 4:11 Procedures Surgical History Date Name Laterality Status Provider Name and Address Organization Details Recorded Time 10/29/2024 Sports Knee 4&1 completed Misha Willams MD [address], [place], [address], [facility] - [facility] 10/29/2024 11:33:47 Imaging Results [...] Updated DateTime 10/29/2024 172.72 cm 33.5 kg/m2 14084.32 g SONIA BARRETT [place] - [facility] 10/29/2024 10:50:22 Social History None recorded. Functional Status None recorded. Mental Status None recorded. Family History Nothing Reported. Medical History Condition Response Allergies/Hayfever N Coronary Artery Disease N Anxiety/Depression N Breathing or lung disorders N Emphysema N Nerve Disorders N Thyroid Problems N COPD N Pacemaker N Anemia N Kidney/Bladder Problems N Vascular Disease N Heart Trouble N Heart Attack ([place]) N Gastrointestinal Disease N Cholesterol N Diabetes N Autoimmune disease N Bleeding Disorder N Inflammatory Joint disease N Orthotics N Arthritis Y Seizures/Epilepsy N Blood Clot N AIDS/HIV N Congestive Heart Failure (CHF) N Acid Reflux (GERD) N Cancer N Stroke N Asthma N Circulation Problems N Peripheral Vascular Disease N Sleep Apnea N Hepatitis N Heart Disease N Rheumatoid Arthritis N Arrhythmia N Pulmonary Embolism N Headaches Y Fibromyalgia N Hypertension N Osteoporosis N Gynecological HistoryNo gynecological history recorded. Obstetrics History GPAL:G 0 P 0 0 0 0 Past Encounters Encounter ID Performer Location Encounter Start Date Encounter Closed Date Diagnosis/Indication Diagnosis SNOMED-CT Code Diagnosis ICD10 Code Diagnosis IMO Codes Diagnosis Note [id number] MD ALDO Stevenson - [place] 2nd floor 300 [facility] [place] [address] 10/29/2024 10:37:42 11/02/2024 14:59:05 Pain of right knee region 3090670619 92203 M25.561 [id number] Health Concerns Section Related Observation LastModified by Organization Detai ls LastModified Time None Recorded Concern Status LastModified by Organization Details LastModified Time None Recorded Advance Directives Directive None Recorded Payers Insurance Date Sequence Insurance Name Policy Number Policy Manzo Covered Member ID Manzo Member ID Guarantor Name 11/29/2024 1 [place] Dale Mejía [id number] Dale Mejía OBGyn Episode No OBEpisode recorded.
--- OUTSIDE RECORDS SUMMARY | 2025-05-02 16:10 | XMS_ITS | Encounter Summary ---
Author Organization [employer] Address [address] [place] [address] 7 [place] [address] Care Team Providers Care Director Of Cardiac Cath Lab Name Role Phone Angelita Vidales Primary Care Provider [phone] Encounter Details Date Type Department Care Team (Late st Contact Info) Description 06/08/2022 Telephone [facility] MED[facility]INE [address] [place], [place] [phone] Marisol Cruz MD [address] [place], [place] [phone] Social History Tobacco Use Types Packs/Day Years [...] on filedocumented in this encounter Care Teams Director Of Cardiac Cath Lab Relationship Specialty Start Date End Date Angelita Vidales FNP [address] [place] [address] PCP - General Family Medicine 03/01/22 documented as of this encounter
--- OUTSIDE RECORDS SUMMARY | 2025-05-02 16:10 | XMS_ITS | Encounter Summary ---
Author Organization [employer] Address [address] [facility] 7t [place] [address] Care Team Providers Care Lap Cutter Truer Operator Name Role Phone Angelita Vidales Primary Care Provider [phone] Reason for Visit * Reason Onset Date Comments Med Refill 12/01/2023 Encounter Details Date Type Department Care Team ([facility] Contact Info) Description 12/01/2023 Telephone [facility] & PEDS [address] [place], [place] [phone] Angelita Vidales FNP [address] [place] [address] Med Refill Social History Tobacco Use Types [...] 5 MG tablet To be sent to: [id number] [place], [place] - [facility] MARIA ESTHER CONTRERAS AT [facility] documented in this encounter Plan of Treatment Not on file documented as of this encounter Visit Diagnoses Not on filedocumented in this encounter Additional Health Concerns Assessment Noted Time PHQ-9 Depression Total Score: 18 024 1:59 PM EDT documented as of this encounter Care Teams Lap Cutter Truer Operator Relationship Specialty Start Date End Date Angelita Vidales FNP [address] [place] [address] PCP - General Family Medicine 03/01/22 documented as of this encounter
--- OUTSIDE RECORDS SUMMARY | 2025-05-02 16:10 | XMS_ITS | Encounter Summary ---
Author Organization [employer] Address [address] [facility] 7t [place] [address] Care Team Providers Care Lock Assembler Name Role Phone Angelita Vidales Primary Care Provider [phone] Reason for Visit * Reason Onset Date Comments Letter for School/Work 12/01/2023 Encounter Details Date Type Department Care Team ([facility] st Contact Info) Description 12/01/2023 Telephone [facility] PEDS [address] [place], [place] [phone] Angelita Vidales FNP [address] [place], [place] [phone] Letter for School/Work Social History Tobacco Use [...] better chair. Any questions, contact pt at [phone] documented in this encounter Plan of Treatment Not on file documented as of this encounter Visit Diagnoses Not on filedocumented in this encounter Additional Health Concerns Assessment Noted Time PHQ-9 Depression Total Score: 18 024 1:59 PM EDT documented as of this encounter Care Teams Lock Assembler Relationship Specialty Start Date End Date Angelita Vidales FNP [address] [place] [address] PCP - General Family Medicine 03/01/22 documented as of this encounter
--- OUTSIDE RECORDS SUMMARY | 2025-05-02 16:10 | XMS_ITS | Clinical Summary ---
Author Organization [email or web address] Address [address] [facility] [address] [place] [address] Care Team Providers Care Head Char Filter Tank Tender Name Role Phone ReaganAngelita limon MILLICENT Primary Care Provider [phone] Allergies Active Allergy Reactions Criticality Noted Date [...] OR FEVER 100 tablet 2 025 Active tamsulosin (Flomax) 0.4 MG 24 hr capsule Take 1 capsule (0.4 mg) by mouth Once per day. Take for up to 30 days to help pass kidney stone. 30 capsule 025 Active famotidine (Pepcid) 20 MG tablet TAKE 1 TABLET BY MOUTH TWICE DAILY IN THE MORNING AND AT BEDTIME NEEDED FOR HEARTBURN OR INDIGESTION 180 tablet 1 025 Active fluticasone (Flonase) 50 MCG/ACT nasal spray SHAKE LIQUID AND USE 1 SPRAY IN EACH NOSTRIL DAILY 48 g 3 025 Active Tirzepatide-Juan Daniel ght Management (Zepbound) 2.5 MG/0.5ML solution auto-injectorIn dications:Class 1 obesity with body mass index (BMI) of 34.0 to 34.9 in adult, unspecified obesity type, unspecified whether serious comorbidity present Inject 0.5 mL (2.5 mg) under the skin 1 (one) time per week. INJECT ONE PEN (=2.5MG) SUBCUTANEOUSLY ONCE A WEEK DIRECTED 2 mL Active fluticasone (Flonase) 50 MCG/ACT nasal spray Administer 1 spray into each nostril Once per day. 16 g 2 025 2024 Discontinued Zepbound 2.5 MG/0.5ML solution auto-injectorIn dications:Class 1 obesity with body mass index (BMI) of 34.0 to 34.9 in adult, unspecified obesity type, unspecified whether serious comorbidity present INJECT ONE PEN (=2.5MG) SUBCUTANEOUSLY ONCE A WEEK DIRECTED 2 mL 1 025 2024 Discontinued(R eorder (will not trigger notification to Pharmacy)) Active Problems Problem Noted Date Diagnosed Date [...] both legs 10/24/2022 Overview (10/07/2024): Evaluated by [facility] Vascular Consult Jun 2024: Venous insufficiency testing [...] 2022 & Jul 2023 - Referred to [facility] Ortho - Hand specialist. Assessment & Plan (07/07/2023 10:47 AM EST): -Encouraged to continue with symptomatic management at home, re-referral for [facility] Ortho hand specialist -Return precautions reviewed Assessment & Plan (06/18/2023 11:45 AM EST): -Encouraged to continue with symptomatic management at home, referral info for [facility] Ortho hand specialist provided. Pt planning to call to schedule initial appt -Return precautions reviewed Assessment & Plan (11/01/2022 6:06 PM EDT): Follow up with specialist as needed Moderate asthma 08/01/2022 Overview (05/28/2023): -Follows with [facility] Pulm (Dr. Cifuentes) -Continue with the following med regimen: Symbicort 160-4.5mcg/act - 2 puffs BID Montelukast 10mg PO nightly albuterol PRN Assessment & Plan (05/28/2023 11:32 AM EST): Symptoms resolved following recent exacerbation Depressive disorder 2022 Dream anxiety disorder 2022 Overview (10/07/2024): Home sleep study through [facility] did not demonstrate ANN (per consult note [...] lifestyle interventions. Report any med SE. Pharmacotherapy: Troyvulises JOHNSTON approved 01/12/24 Dose: 0.25mg weekly - initiated [...] decision making to proceed with PA for Nevin, Reviewed med safety and SE -Discussed importance [...] Encounters Date Type Department Care Team Description 04/24/2025 Refill [facility] [address] [place], [place] [phone] Angelita Vidales FNP Class 1 obesity with body mass index (BMI) of 34.0 to 34.9 in adult, unspecified obesity type, unspecified whether serious comorbidity present 04/11/2025 Refill [facility] [address] [place] [address] Lizett Aguilar MD 03/14/2025 Refill [facility] [address] [place] [address] Angelita Vidales FNP 02/20/2025 Refill [facility] [address] [place] [address] Angelita Vidales FNP Class 1 obesity with body mass index (BMI) of 34.0 to 34.9 in adult, unspecified obesity type, unspecified whether serious comorbidity present from Last 3 Months Immunizations Immunization Administration [...] with others, in a hotel, in a half-way, living outside on the street, on a [...] PM EDT Narrative 02/20/2025 1:23 PM EDT [address] [address] Ultrasound Report Signed Patient: Dale Mejía MR#: [id number] : 1990 Acct:[id number] Age/Sex: 34 / F ADM Date: 02/20/25 Loc: HO.US Attending Dr: Angelita RICKS Ordering Physician: Phalen,Angelita COMMUNICATIONS ENGINEER Date of Service: 02/20/25 Procedure(s): US renal BI Accession Number(s): [id number] cc: Angelita Vidales COMMUNICATIONS ENGINEER EXAMINATION: US RETROPERITONEAL LIMITED (RENAL ONLY) CLINICAL [...] 02/20/25 1320 DD/ 1241 TD/TT: 02/20/25 1246 Pre Sales Architect: Procedure Note Donotuseinterpreter, Image - 02/20/2025 [place] [address] Ultrasound Report Signed Patient: Dale Mejía [facility]#: [id number] : 1990Acct:[id number] Age/Sex: 34 / FADM Date: 02/20/25 Loc: HO.US Attending Dr: Angelita RICKS Ordering Physician: Angelita Vidales Date of Service: 02/20/25 Procedure(s): US renal BI Accession Number(s): [id number] cc: Angelita Vidales COMMUNICATIONS ENGINEER EXAMINATION: US RETROPERITONEAL LIMITED (RENAL ONLY) CLINICAL [...] Sriram Hills MD 02/20/2025 01:20 PM EDT RP Dictated By: Sriram Hills MD Signed By: <Electronically signed by Sriram Hills MD in OV> 02/20/25 1320 DD/ 1241 TD/TT: 02/20/25 1246 Pre Sales Architect: us Angelita RICKS IMG US PROCEDURES Final Result * Hepatitis C Viral RNA, Quantitative, Real-Time PCR (01/03/2025 9:03 AM EDT) Hepatitis C Viral Load <15 NOT DETECTED NOT DETECTED IU/mL [facility] HCV Log PCR <1.18 NOT DETECTED NOT DETECTED Log IU/mL [facility] Comment:For additional infor tiffanie, please refer tohttp://education.[employer]/faq/QTL42y5(This link is being provided for informational/educational purposes only.)THIS TEST WAS PERFORMED AT:[facility] [place] [phone] ARSHAD MD Blood 01/03/2025 9:03 AM EDT 01/03/2025 11:06 AM EDT us Angelita RICKS LAB BLOOD ORDERABLES Final Res ult [facility] [address] [place] [address] [phone] * HIV-1/2 Antigen and Antibodies, Fourth Generation, with Reflexes (01/03/2025 9:03 AM EDT) HIV AB/AG Nonreactive Nonreactive [facility] Comment:HIV-1 p24 Ag and/or HIV-1/HIV-2 Ab not detected.A test result that is nonreactive does not exclude thepossibility of exposure to or infection with HIV-1 and/orHIV-2. Nonreactive results in this assay for individualswith prior exposure to HIV-1 and/or HIV-2 may be due toantigen and antibody levels that are below the limit ofdetection of this assay.The [employer] HIV Ag/Ab Combo assay result andsupplemental assay results should be interpreted inconjunction with the patient's clinical presentation,history and other laboratory results. If the results areinconsistent with clinical evidence, additional testing issuggested to confirm the result. Blood Venous blood specimen / Unknown 01/03/2025 9:03 AM EDT 01/03/2025 11:06 AM EDT us Angelita Vidales [facility] LAB BLOOD ORDERABLES Final Res ult [facility] [address] [place] [address] [phone] * (ABNORMAL) Lipid Panel, Standard (01/03/2025 9:03 AM EDT) Triglycerides 99 <150 mg/dL [facility] Comment:Desirable Triglyceri de: less than 150 mg/dLBorderline High Triglyceride 150-199 mg/dLHigh Triglyceride: 200-499 mg/dLVery High Triglyceride: greater than or equal to 5OO mg/dL Cholesterol 190 <200 mg/dL [facility] Comment:Desirable Cholestero l: less than 200 mg/dLBorderline High Cholesterol: 200-239 mg/dLHigh Cholesterol: greater than 239 mg/dL LDL Cholesterol Calculated 113(H) <100 mg/dL [facility] Comment:Desirable LDL: less than 100 mg/dLNear Optimal/Above Optimal LDL: 110- 129 mg/dLBorderline High LDL: 130-159 mg/dLHigh LDL: 160-189 mg/dLVery High LDL: greater than or equal to 190 mg/dL HDL Cholesterol 58 >40 mg/dL [facility] Comment:Desirable HDL: great er than 40 mg/dL Note: This HDL assay may give artificially low results in patients with liver disease. Blood Venous blood specimen / Unknown 01/03/2025 9:03 AM EDT 01/03/2025 11:06 AM EDT Angelita Vidales COMMUNICATIONS ENGINEER LAB BLOOD ORDERABLES Final Res ult [facility] [address] [place] [address] [phone] * Pap Smear (08/06/2020) Pap Negative for intraephithelial lesion or malignancy Negative for intraephithelial lesion or malignancy, Other HPV Not Detected Undetected, Indeterminate, Quantitative, Not Detected Historical Provider HEALTH MAINTENANCE Final Result from Last 3 Months or Most Recently Relevant to Health Maintenance [place] [address] [place] [address] C3 Care Teams Head Char Filter Tank Tender Relationship Specialty Start Date End Date Angelita Vidales FNP [address] [place] [phone] PCP - General Family Medicine 03/01/22
== END 2025-05-02 13:48 | disposition home or self-care (01) ==
LOC: HO.HPS 13:14
PROVIDERS: PCP Registered Nurse; Visit Provider Internal Medicine Pulmonary Disease
DX: J45.40 Moderate persistent asthma, uncomplicated (principal)
CPT/HCPCS: 99213

== ENCOUNTER → 2025-05-02 13:13 | Outpatient (BNVA) | payer MEDICAID, SELFPAY | PROVIDERS: PCP Registered Nurse; Visit Provider Internal Medicine Pulmonary Disease | DX: J45.40 Moderate persistent asthma, uncomplicated (principal) | CPT/HCPCS: 99212 ==

== ENCOUNTER 2025-05-22 14:49 | Outpatient (AMB) | payer MEDICAID, SELFPAY ==
[2025-05-22 15:41] VITALS: BMI 37.2
--- NOTE | 2025-05-22 15:41 | MHC.OFFVIS ---
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 c/o irregular period News Broadcaster Required: No Information Interpreted: non-clinical & clinical Chief Arson Division: Chief Arson Division Present (dolores) Accompanied by: Self / Same As Patient Allergies No Known Allergies Allergy (Verified 05/22/25 15:44) Medication List - Last Reconciled 05/23/25 by Chaya Thomas CNM albuterol sulfate 2.5 mg (3 mL) inhalation Q6H PRN 30 days albuterol sulfate 90 mcg/actuation 2 inhalations inhalation Q6H PRN 30 days budesonide-formoterol 160-4.5 mcg/actuation (Symbicort) 2 puffs inhalation BID 90 days etonogestrel (Nexplanon) subdermal fluticasone propionate 110 mcg/actuation (Flovent HFA) 1 puff PO BID inhalational spacing device (ProChamber) USE DIRECTED montelukast (Singulair) 10 mg PO BEDTIME 90 days nebulizers As directed Is last menstrual period known: Yes (irregular period) Last menstrual period: 05/10/25 HPI Comments Details: Pt presents today for ANNUAL exam, it has been > 4 yrs since last seen in BROADCAST PRODUCER She has the following concerns: she has a hx of irreg menses , even prior to having her nexplanon placed. would like to plan for future , but does not want more children at this time, they have 4 She is in a relationship x 11 yrs. She denies any issues of DV Exercise: daily walks, has elliptical Nutrition/calcium: improving Contraception: Nexplanon inserted 2020 Last Pap: 2020 , Results: Neg Last mammo: n/a, PFSH Medical History Asthma Pleuritic chest pain Renal calculi Migraine Surgical History Hx of tonsillectomy Social History (Updated 05/23/25 @ 09:23 by Chaya Thomas CNM) Household Members: Spouse and Children Alcohol intake: never Patient Tobacco Use Status: Never used Tobacco Use of substances other than those prescribed or required for medical reasons: No Have you been hit, kicked, punched, or otherwise hurt by someone within the past year? If so, by whom?: No Do you feel safe in your current relationship?: Yes service: No Current occupational status: employed Current occupation: [place] , [employer] @ [employer] Current occupational exposures/hazards: No Gender identity: Female Female Reproductive History Menstrual Age of Menarche: 11 Date of last menstrual period: 05/10/25 Review of Systems Const Reports no additional complaints Eyes Reports no additional complaints ENT Reports no additional complaints Card Reports no additional complaints Resp Reports no additional complaints GI Reports no additional complaints Reports as per [facility] Skin/Breast Reports system reviewed and no additional complaints, except as documented Physical Exam Vital Signs: BMI result Body Mass Index 37.2 Const General: cooperative, healthy appearing and no acute distress Orientation/consciousness: patient oriented x3 HEENT Head: Yes normal to inspection and Yes normocephalic Ears: external ears normal General nose exam: Normal external nose present Neck Neck: Yes normal visual inspection Chest Breast/axilla inspection: normal inspection of the breasts, normal inspection of the axillae and Other (No skin changes, peau d orange, or nipple discharge noted) Breast/axilla palpation: normal palpation of the breasts, normal palpation of the axillae and no axillary lymphadenopathy Resp Effort & Inspection: normal respiratory effort and able to speak in complete sentences GI Inspection: No distended Palpation (GI): Soft to palpation, nontender and no masses Percussion: Yes normal to percussion Rectal Exam - Female: External hemorrhoid(s) present ([present/absent]) External Female Exam: normal external appearance and normal appearance of the urethra Speculum Exam - Vagina: normal appearance of the vagina and normal vaginal discharge Speculum Exam - Cervix: normal appearance of the cervix and normal palpation (neg CMT) Bimanual exam- vagina & uterus: normal bimanual exam, normal palpation (neg CMT), uterine mobility normal and non-tender Bimanual Exam- Adnexa, other: no masses and No adnexal tenderness Skin General skin exam: no rashes or lesions noted Neuro General: patient oriented x3 and moves all extremities Extrem Other: Nexplanon palpable in left upper arm General: Yes full ROM Psych Speech and movement: Normal speech and movement present Affect: normal affect Attitude: cooperative Thought process: Normal thought process present Assessment & Plan Assessment & Plan (1) Well woman exam with routine gynecological exam: Code(s): Z01.419 - Encounter for gynecological examination (general) (routine) without abnormal findings (2) Screening for malignant neoplasm of cervix: Code(s): Z12.4 - Encounter for screening for malignant neoplasm of cervix Plan: co-testing PAP today (3) Abnormal uterine bleeding: Code(s): N93.9 - Abnormal uterine and vaginal bleeding, unspecified Plan: pelvic sono r/o endometiral abnormality (4) Nexplanon in place: Code(s): Z97.5 - Presence of (intrauterine) contraceptive device Plan: Plan removal/replacement one year Plan During the visit, the following areas of concern were addressed: Monitoring of the menstrual cycle Contraception, including options and instructions, risks and benefits- she will be due for Nexplanon replacement/removal if she decides to have Nexplanon removed, Pre-conception counseling, including assuring a diet with sufficient and folic acid of where supplementation prior to conception, avoidance of alcohol, smoking or other harm for medications or drugs Regular exercise Healthy lifestyle Domestic violence Menopausal/carmine-menopausal signs and symptoms, including nonprescription strategies for management Health Maintenance and Screening -Reviewed ASCCP guidelines for Paps and yearly (bi-yearly ) pelvic exam. -Reviewed and encouraged diet and exercise for cardiovascular and bone health -Reviewed breast self-awareness. Importance of yearly mammogram after age 40 (earlier if first-degree relative with breast cancer at a younger age ) Discuss use of 3 times per week weight-bearing exercise, vitamin D3 and servings of dietary calcium daily for bone health. -continue to follow with PCP for general medical care, immunizations. Family and personal history of cancer reviewed. Genetic screening optional - not indicated The patient has BMI: 37 The patient is overweight. Approaches towards weight loss are discussed including burning more calories than 1 takes in by frequent, small meals, portion control, avoiding eating before bedtime, regular exercise with an emphasis on duration rather than intensity, strength training exercise, referral to relief pilot or to weight loss management center upon patient request. RTO one year or sooner sean Thomas CNM Note about provider documentation : If you or the patient named in this chart and are reviewing your medical notes, please note that medical documentation is often written with abbreviations and medical terminology, and directed for other providers who may be involved in your care as well. Documentation is critical to record what has happened, what tests were ordered, and so they are interpreted with the resulting diagnoses. These nodes have been made available for patient review but not specifically written for the patient. Important health information is always given to my patients in clinical instructions. Please review your after visit summary and our contact our clinical staff if you have any questions. Orders: Orders US pelvic complete 1 Month N93.9 - Abnormal uterine and vaginal bleeding, unspecified Pap Smear 05/22/25 Z01.419 - Encounter for gynecological examination (general) (routine) without abnormal findings, Z12.4 - Encounter for screening for malignant neoplasm of cervix US transvaginal 1 Month N93.9 - Abnormal uterine and vaginal bleeding, unspecified Coding Level of Care Code New Pt Prev Care 18-39yr([id number] Diagnoses Well woman exam with routine gynecological exam Z01.419 Screening for malignant neoplasm of cervix Z12.4 Abnormal uterine bleeding N93.[address] Z97.5
--- OUTSIDE RECORDS SUMMARY | 2025-05-23 03:20 | XMS_ITS | Encounter Summary ---
Author Organization [employer] Address [address] [place] [address] [address] [place] [address] Care Team Providers Care Machinist Name Role Phone Angelita Vidales Primary Care Provider [phone] Encounter Details Date Type Department Care Team (Late st Contact Info) Description 06/08/2022 Telephone [facility] [address] [place], [place] [phone] Marisol Cruz MD [address] [place], [place] [phone] Social History Tobacco Use Types Packs/Day Years [...] on filedocumented in this encounter Care Teams Machinist Relationship Specialty Start Date End Date Angelita Vidales FNP [address] [place] [address] PCP - General Family Medicine 03/01/22 documented as of this encounter
--- OUTSIDE RECORDS SUMMARY | 2025-05-23 03:20 | XMS_ITS | Data Portability ---
Author Organization [facility]HELA Olvin Fritz [facility] Address [address] [place] [address] Care Team Providers Care Productivity Engineer Name Role Phone Unavailable Primary Care Provider [phone] Assessment Encounter Date Assessment Date Assessment LastModified [...] 2. Follow-up 4 weeks to check progress [facility] speech recognition carrier driver software was used to create portions of [...] 3v lt knee room 212 025 10/30/19 [email or web address] [facility], [address] [facility] [address], [address] [place] [address], [address], 14:59:05 Medication Orders None record ed. Patient TargetsNo targets recorded. Patient InstructionsNo instructions recorded. Reason for Referral None Reported. Results Created Date Observation Date Name Description Value Unit Range Abnormal Flag Note LastModifiedBy Organization Detail LastModifiedTime 10/30/1910/29/2024 XR, knee, 3 view [email or web address] ?Encry pted=s hAaTro YD8dLq bEUv6g %2BXZw aYqtaq 0bqfl% 2Fg9IQ a4ajBk vP9nXo QUaueC m3YtLR FvZlgJ JJ8mAn HZtai3 1m9912 AC0Kla n%2BBV qKhKiQ trMwF INTERFACE [facility] [address], [place], [address], 10/29/2024 11:04:10 10/30/19 25 10/29/2024 XR, knee, 3 view [email or web address] ?Encry pted=s hAaTro YD8dLq bEUv6g %2BXZw aYqtaq 0bqfl% 2Fg9IQ a4ajBk vP9nXo QUaueC m3YtLR FvZlgJ JJ8mAn HZtai3 9p8147 AC0Kla n%2BBV qKhKiQ trMwF INTERFACE [facility] [address], [place], [address], 10/29/2024 11:04:11 Result Notes Documentation Provider Name and Address Organization Details Recorded Time Xr, Knee, 3 View : [email or web address] Encrypted=bwBbUucOG3aMhxP Uv6g%6DMTopTdbks3dphl%2Fg 0BPv0trOxvG0kDvVSkxlPx4Wt RCQrBvyKEO5mDyRNxyv98a378 8QQ3Donj%2BBVqKhKiQtrMwF Not Available [facility] 10/29/2024 11:0 4:10 Xr, Knee, 3 View : [email or web address] Encrypted=sbLnZdxTL4sJagW Uv6g%4OFBylQxlpc5rqvn%2Fg 0BKc2nkXzoV7cUmSBpghLr8Vq MADdZddUXS9wUbSIdfd56m654 5QR8Jiyg%2BBVqKhKiQtrMwF Not Available [facility] 10/29/2024 11:0 4:11 Procedures Surgical History Date Name Laterality Status Provider Name and Address Organization Details Recorded Time 10/29/2024 Sports Knee 4&1 completed Misha Willams MD [address], [place], [address], [facility] 10/29/2024 11:33:47 Imaging Results [...] Updated DateTime 10/29/2024 172.72 cm 33.5 kg/m2 22270.32 g SONIA BARRETT [place] - [facility] 10/29/2024 10:50:22 Social History None recorded. Functional Status None recorded. Mental Status None recorded. Family History Nothing Reported. Medical History Condition Response Allergies/Hayfever N Coronary Artery Disease N Breathing or lung disorders N Anxiety/Depression N Emphysema N Nerve Disorders N Thyroid Problems N COPD N Pacemaker N Kidney/Bladder Problems N Anemia N Vascular Disease N Heart Trouble N Heart Attack (NM) N Gastrointestinal Disease N Cholesterol N Diabetes N Autoimmune disease N Inflammatory Joint disease N Bleeding Disorder N Orthotics N Seizures/Epilepsy N Arthritis Y Blood Clot N AIDS/HIV N Congestive Heart Failure (CHF) N Acid Reflux (GERD) N Cancer N Stroke N Asthma N Circulation Problems N Peripheral Vascular Disease N Sleep Apnea N Hepatitis N Heart Disease N Rheumatoid Arthritis N Pulmonary Embolism N Arrhythmia N Headaches Y Fibromyalgia N Hypertension N Osteoporosis N Gynecological HistoryNo gynecological history recorded. Obstetrics History GPAL:G 0 P 0 0 0 0 Past Encounters Encounter ID Performer Location Encounter Start Date Encounter Closed Date Diagnosis/Indication Diagnosis SNOMED-CT Code Diagnosis ICD10 Code Diagnosis IMO Codes Diagnosis Note [id number] MD ALDO Stevenson - [facility] 2[address] floor [address] [facility] [place] [address] 10/29/2024 10:37:42 11/02/2024 14:59:05 Pain of right knee region [id number] 18211 M25.561 [id number] Health Concerns Section Related Observation LastModified by Organization Detai ls LastModified Time None Recorded Concern Status LastModified by Organization Details LastModified Time None Recorded Advance Directives Directive None Recorded Payers Insurance Date Sequence Insurance Name Policy Number Policy Manzo Covered Member ID Manzo Member ID Guarantor Name 11/29/2024 1 [place] Dale Mejía [id number] Dale Mejía OBGyn Episode No OBEpisode recorded.
--- OUTSIDE RECORDS SUMMARY | 2025-05-23 03:20 | XMS_ITS | Encounter Summary ---
Author Organization [employer] Address [address] [place] [address] [address] [place] [address] Care Team Providers Care Circuit Board Drafter Name Role Phone Angelita Vidales Primary Care Provider [phone] Reason for Visit * Reason Onset Date Comments Prior Authorization 05/06/2025 Encounter Details Date Type Department Care Team ([facility] Contact Info) Description 05/06/2025 Telephone [facility]EDS [address] [place], [place] [phone] Angelita Vidales FNP 505 [place] [address] Prior Authorization Social History Tobacco Use Types Packs/Day Years [...] with others, in a hotel, in a custodial, living outside on the street, on a [...] encounter Miscellaneous Notes * Telephone Encounter - Chalino Heredia - 05/06/2025 3:19 PM EST Script for Tirzepatide-Weight Management (Zepbound) 2.5 MG/0.5ML solution auto- injector requires a prior authorization documented in this encounter Plan of Treatment Not on file documented as of this encounter Visit Diagnoses Not on filedocumented in this encounter Additional Health Concerns Assessment Noted Time PHQ-9 Depression Total Score: 6 10/08/19 25 3:08 PM EDT documented as of this encounter Care Teams Circuit Board Drafter Relationship Specialty Start Date End Date Angelita Vidales FNP [address] [place] [phone] PCP - General Family Medicine 03/01/22 documented as of this encounter
--- OUTSIDE RECORDS SUMMARY | 2025-05-23 03:20 | XMS_ITS | Encounter Summary ---
Author Organization [employer] Address [address] [facility] 7t [place] [address] Care Team Providers Care Turn Out Name Role Phone Angelita Vidales Primary Care Provider [phone] Reason for Visit * Reason Onset Date Comments Med Refill 12/01/2023 Encounter Details Date Type Department Care Team ([facility] Contact Info) Description 12/01/2023 Telephone [facility] MED & PEDS [address] [place], [place] [phone] Angelita Vidales FNP 505 [place] [address] Med Refill Social History Tobacco Use Types [...] 5 MG tablet To be sent to: [id number] [place], [place] - [facility] MARIA ESTHER CONTRERAS AT [facility] documented in this encounter Plan of Treatment Not on file documented as of this encounter Visit Diagnoses Not on filedocumented in this encounter Additional Health Concerns Assessment Noted Time PHQ-9 Depression Total Score: 18 024 1:59 PM EDT documented as of this encounter Care Teams Turn Out Relationship Specialty Start Date End Date Angelita Vidales FNP [address] [place] [id number] PCP - General Family Medicine 03/01/22 documented as of this encounter
--- OUTSIDE RECORDS SUMMARY | 2025-05-23 03:20 | XMS_ITS | Clinical Summary ---
Author Organization [employer] Address [address] [facility] 7t [place] [address] Care Team Providers Care Russet Repairer Name Role Phone ReaganAngelita limon MILLICENT Primary Care Provider Allergies Active Allergy Reactions Criticality Noted Date [...] mouth 2 times daily. 20 tablet 024 Active econazole nitrate 1 % creamIndication s:Intertrigo [...] SUBCUTANEOUSLY ONCE A WEEK DIRECTED 2 mL 025 Active Zepbound 2.5 MG/0.5ML solution auto-injectorIn [...] both legs 10/24/2022 Overview (10/07/2024): Evaluated by [facility] Vascular Consult Jun 2024: Venous insufficiency testing [...] 2022 & Jul 2023 - Referred to [facility] Ortho - Hand specialist. Assessment & Plan (07/07/2023 10:47 AM EST): -Encouraged to continue with symptomatic management at home, re-referral for [facility] Ortho hand specialist -Return precautions reviewed Assessment & Plan (06/18/2023 11:45 AM EST): -Encouraged to continue with symptomatic management at home, referral info for [facility] Ortho hand specialist provided. Pt planning to call to schedule initial appt -Return precautions reviewed Assessment & Plan (11/01/2022 6:06 PM EDT): Follow up with specialist as needed Moderate asthma 08/01/2022 Overview (05/28/2023): -Follows with [facility] Pul (Dr. Cifuentes) -Continue with the following med regimen: Symbicort 160-4.5mcg/act - 2 puffs BID Montelukast 10mg PO nightly albuterol PRN Assessment & Plan (05/28/2023 11:32 AM EST): Symptoms resolved following recent exacerbation Depressive disorder 2022 Dream anxiety disorder 2022 Overview (10/07/2024): Home sleep study through [facility] did not demonstrate ANN (per consult [...] lifestyle interventions. Report any med SE. Pharmacotherapy: Darshangovy PA approved 01/12/24 Dose: 0.25mg weekly - initiated 01/24/24 Dose: 0.5mg weekly - Initiated 02/21/24 Dose: 1mg weekly - Initiated 03/21/24 Dose: 1.7mg weekly - START 04/18/24 Assessment & Plan (02/04/2024 11:07 AM EDT): Nutrition: limited food intake throughout the day, reviewed nutrition/dietary intake Exercise: currently participating in physical therapy to assist with back pain Sleep: intermittent difficulties, see below Pharmacotherapy: Darshangovy PA approved 01/12/24 Dose: 0.25mg weekly - [...] Encounters Date Type Department Care Team Description 05/06/2025 Telephone [facility] MED & PEDS [address] [place] [address] Angelita Vidales FNP Prior Authorization 04/24/2025 Refill [facility] MED & PEDS [address] [place] [address] Angelita Vidales FNP Class 1 obesity with body mass index (BMI) of 34.0 to 34.9 in adult, unspecified obesity type, unspecified whether serious comorbidity present 04/11/2025 Refill [facility] [address] [place] [address] Lizett Aguilar MD 03/14/2025 Refill [facility] [address] [place] [address] Angelita Vidales FNP 02/20/2025 Refill [facility] MED & PEDS [address] [place] [address] Angelita Vidales FNP Class 1 obesity with [...] with others, in a hotel, in a skilled nursing, living outside on the street, on a [...] PM EDT Narrative 02/20/2025 1:23 PM EDT [place] [address] Ultrasound Report Signed Patient: Dale Mejía MR#: [id number] : 1990 Acct:[id number] Age/Sex: 34 / F ADM Date: 02/20/25 Loc: HO.US Attending Dr: Angelita RICKS Ordering Physician: Angelita Vidales Date of Service: 02/20/25 Procedure(s): US renal BI Accession Number(s): [id number] cc: Angelita Vidales EXAMINATION: US RETROPERITONEAL LIMITED [...] 02/20/25 1320 DD/ 1241 TD/TT: 02/20/25 1246 Government Gauger: Procedure Note Donotuseinterpreter, Image - 02/20/2025 [place] [address] Ultrasound Report Signed Patient: Dale Mejía [facility]#: [id number] : 1990Acct:[id number] Age/Sex: 34 / FADM Date: 02/20/25 Loc: HO.US Attending Dr: Angelita RICKS Ordering Physician: Angelita Vidales Date of Service: 02/20/25 Procedure(s): US renal BI Accession Number(s): [id number] cc: Angelita Vidales EXAMINATION: US RETROPERITONEAL LIMITED [...] 02/20/25 1320 DD/ 1241 TD/TT: 02/20/25 1246 Government Gauger: Angelita RICKS IMG US PROCEDURES Final Result * Hepatitis C Viral RNA, Quantitative, Real-Time PCR (01/03/2025 9:03 AM EDT) Hepatitis C Viral Load <15 NOT DETECTED NOT DETECTED IU/mL [facility] HCV Log PCR <1.18 NOT DETECTED NOT DETECTED Log IU/mL [facility] Comment:For additional infor tiffanie, please refer [email or web address].Bizzingo/faq/VLZ96p5(This link is being provided for informational/educational purposes only.)THIS TEST WAS PERFORMED AT:[facility] [place] [phone] ARSHAD MD Blood 01/03/2025 9:03 AM EDT 01/03/2025 11:06 AM EDT us Angelita RICKS LAB BLOOD ORDERABLES Final Res ult [facility] [address] [place] [phone] * HIV-1/2 Antigen and Antibodies, Fourth Generation, with Reflexes (01/03/2025 9:03 AM EDT) HIV AB/AG Nonreactive Nonreactive [facility] Comment:HIV-1 p24 Ag and/or HIV-1/HIV-2 Ab not detected.A test result that is nonreactive does not exclude thepossibility of exposure to or infection with HIV-1 and/orHIV-2. Nonreactive results in this assay for individualswith prior exposure to HIV-1 and/or HIV-2 may be due toantigen and antibody levels that are below the limit ofdetection of this assay.The [employer] HIV Ag/Ab Combo assay result andsupplemental assay results should be interpreted inconjunction with the patient's clinical presentation,history and other laboratory results. If the results areinconsistent with clinical evidence, additional testing issuggested to confirm the result. Blood Venous blood specimen / Unknown 01/03/2025 9:03 AM EDT 01/03/2025 11:06 AM EDT us Angelita Vidales [facility] LAB BLOOD ORDERABLES Final Res ult [facility] [address] [place] [phone] * (ABNORMAL) Lipid Panel, Standard (01/03/2025 9:03 AM EDT) Triglycerides 99 <150 mg/dL [facility] Comment:Desirable Triglyceri de: less than 150 mg/dLBorderline High Triglyceride 150-199 mg/dLHigh Triglyceride: 200-499 mg/dLVery High Triglyceride: greater than or equal to 5OO mg/dL Cholesterol 190 <200 mg/dL [facility] Comment:Desirable Cholestero l: less than 200 mg/dLBorderline High Cholesterol: 200-239 mg/dLHigh Cholesterol: greater than 239 mg/dL LDL Cholesterol Calculated 113(H) <100 mg/dL [facility] Comment:Desirable LDL: less than 100 mg/dLNear Optimal/Above Optimal LDL: 110- 129 mg/dLBorderline High LDL: 130-159 mg/dLHigh LDL: 160-189 mg/dLVery High LDL: greater than or equal to 190 mg/dL HDL Cholesterol 58 >40 mg/dL [facility] Comment:Desirable HDL: great er than 40 mg/dL Note: This HDL assay may give artificially low results in patients with liver disease. Blood Venous blood specimen / Unknown 01/03/2025 9:03 AM EDT 01/03/2025 11:06 AM EDT Angelita Vidales [employer]IST LAB BLOOD ORDERABLES Final Res ult [facility] [address] [place] [phone] * Pap Smear (08/06/2020) Pap Negative for intraephithelial lesion or malignancy Negative for intraephithelial lesion or malignancy, Other HPV Not Detected Undetected, Indeterminate, Quantitative, Not Detected Historical Provider HEALTH MAINTENANCE Final Result from Last 3 Months or Most Recently Relevant to Health Maintenance [place] [address] [place] [address] C3 Care Teams Russet Repairer Relationship Specialty Start Date End Date Angelita Vidales FNP [address] [place] [phone] PCP - General Family Medicine 03/01/22
--- OUTSIDE RECORDS SUMMARY | 2025-05-23 03:20 | XMS_ITS | Encounter Summary ---
Author Organization [employer] Address [address] [facility] 7t [place] [address] Care Team Providers Care Hydrogen Plant Operations Manager Name Role Phone Angelita Vidales Primary Care Provider [phone] Reason for Visit * Reason Onset Date Comments Letter for School/Work 12/01/2023 Encounter Details Date Type Department Care Team ([facility] st Contact Info) Description 12/01/2023 Telephone [facility] MED & PEDS [address] [place], [place] [phone] Angelita Vidales FNP [address] [place], [place] [phone] Letter for School/Work Social History Tobacco Use [...] better chair. Any questions, contact pt at [phone] documented in this encounter Plan of Treatment Not on file documented as of this encounter Visit Diagnoses Not on filedocumented in this encounter Additional Health Concerns Assessment Noted Time PHQ-9 Depression Total Score: 18 024 1:59 PM EDT documented as of this encounter Care Teams Hydrogen Plant Operations Manager Relationship Specialty Start Date End Date Angelita Vidales FNP [address] [place] [phone] PCP - General Family Medicine 03/01/22 documented as of this encounter
--- OUTSIDE RECORDS SUMMARY | 2025-05-23 03:20 | XMS_ITS | Encounter Summary ---
Author Organization [employer] Address [address] [facility] [address]t [place] [address] Care Team Providers Care Senior It Architect Name Role Phone Angelita Vidales MILLICENT Primary Care Provider Reason for Visit * Reason Comments Med Refill Encounter Details Date Type Department Care Team ([facility] Contact Info) Description 04/01/2024 Refill [facility] [address] [place], [place] [phone] Desirae Kahn MD [address] [place] [address] Chest pain, unspecified type; Costochondritis, acute Social [...] documented as of this encounter Care Teams Senior It Architect Relationship Specialty Start Date End Date Angelita Vidales FNP [address] [place] [phone] PCP - General Family Medicine 03/01/22 documented as of this encounter
== END 2025-05-23 08:34 | disposition home or self-care (01) ==
LOC: HO.HWSM 14:49
PROVIDERS: PCP Registered Nurse; Visit Provider Advanced Practice Midwife
DX: Z01.419 Encounter for gynecological examination (general) (routine) without abnormal findings (principal); N93.9 Abnormal uterine and vaginal bleeding, unspecified; Z97.5 Presence of (intrauterine) contraceptive device
CPT/HCPCS: 99385

== ENCOUNTER 2025-05-22 14:49 | Outpatient (REF) | payer MEDICAID, SELFPAY | END 2025-05-22 14:50 | disposition home or self-care (01) | LOC: HO.LNP 14:49 | PROVIDERS: PCP Registered Nurse; Visit Provider Advanced Practice Midwife | DX: Z01.419 Encounter for gynecological examination (general) (routine) without abnormal findings (principal); N93.9 Abnormal uterine and vaginal bleeding, unspecified; Z97.5 Presence of (intrauterine) contraceptive device | CPT/HCPCS: 87626; 88175 ==